=== PATIENT | male | born 1945 | race Caucasian/White ===

== ENCOUNTER 2019-08-16 09:27 | Outpatient (CLI) | payer MEDICARE, SELFPAY ==
--- NOTE | ~2019-08-16 | XR_ITS ---
XR lumbar spine 2-3V DATE: 08/16/2019 09:53 INDICATION: Low back pain. Skin anesthesia. TECHNIQUE: AP, lateral, coned lateral lumbosacral views COMPARISON: 07/06/2014 lumbar spine FINDINGS: There is rotatory dextroscoliosis. There is severe degenerative disc disease throughout the lumbar and lumbosacral spine, increased in s everity compared to 07/06/2014. No fracture or bone destruction is evident. There is no apparent spondylolisthesis. The sacroiliac joints are unremarkable other than some degenerative change. Surgical clips, right upper quadrant, consistent with cholecystectomy. IMPRESSION: Rotatory dextroscoliosis and severe degenerative disc disease throughout the lumbar and l umbosacral spine Reviewed, dictated and finalized at location A. IMPRESSION: Rotatory dextroscoliosis and severe degenerative disc disease throu ghout the lumbar and lumbosacral spine
--- NOTE | ~2019-08-16 | XR_ITS ---
XR hip RT 2V w AP pelvis DATE: 08/16/2019 09:53 INDICATION: Low back pain, right hip pain. TECHNIQUE: AP pelvis. AP and lateral views of right hip COMPARISON: None FINDINGS: No pelvic fracture or bone destruction. The pubic symphysis and sacroiliac joints are intac t. Hip joint spaces are symmetric and relatively preserved. No fracture, dislocation, avascular necrosis or bone destruction of the right hip. Dextro scoliosis and multilevel degenerative disc disease of the lumbar and lumbosacral spine. IMPRESSION: No significant abnormality of the right hip Reviewed, dictated and finalized at location A.
== END 2019-08-16 09:28 | disposition home or self-care (01) ==
PROVIDERS: PCP Internal Medicine; Visit Provider Internal Medicine
DX: M54.5 Low back pain (principal); R20.2 Paresthesia of skin
CPT/HCPCS: 72100; 73502

== ENCOUNTER 2019-08-26 13:28 | Outpatient (CLI) | payer MEDICARE, SELFPAY ==
--- NOTE | ~2019-08-26 | MR_ITS ---
EXAMINATION: MR thoracic spine wo/w con DATE: 08/26/2019 15:29 INDICATION: Thoracic pain. Right leg pain. TECHNIQUE: Magnetic resonance imaging (MRI) of the thoracic spine was performed without and with 20 m L MultiHance intravenous contrast. Sequences included sagittal and axial T2-weighted FSE, sagittal T2 -weighted FS FSE, and sagittal and axial T1-weighted FSE. Postcontrast sequences included sagittal an d axial T1-weighted FS FSE. COMPARISON: Chest 2 views 12/16/2018 FINDINGS: There is 6 degrees levocurvature of thoracic spine. There are Schmorl's nodes at multiple l evels in mid and lower thoracic spine. There is a hemangioma in T9 vertebral body. There is mildly de creased disc height at T5-T6, T6-T7, and T9-T10. At T2-T3, there is a right central protrusion with m ild central canal stenosis. At T6-T7, there is a central protrusion with mild central canal stenosis. There is multilevel facet joint osteoarthritis, severe on the right at T8-T9 and T10-T11. On the rig ht, there is mild neural foraminal stenosis at T2-T3, T9-T10, and T10-T11 and moderate neural foramin al stenosis at T8-T9. The spinal cord signal intensity is normal. IMPRESSION: 1. Mild thoracic spondylosis. Reviewed, dictated and finalized at location A.
--- NOTE | ~2019-08-26 | MR_ITS ---
EXAMINATION: MR lumbar spine wo con DATE: 08/26/2019 15:26 INDICATION: Right leg pain. TECHNIQUE: Magnetic resonance imaging (MRI) of the lumbar spine was performed without intravenous con trast. Sequences included sagittal T2-weighted FSE, sagittal STIR FSE, sagittal T1-weighted FSE, and axial T2-weighted FSE. COMPARISON: Lumbar spine MRI 02/27/2012 FINDINGS: There is 16 degrees dextroscoliosis of lumbar spine. There is 4 mm retrolisthesis of L2 on L3. There is mild chronic anterior wedging of T12 and L1 vertebral bodies. There are Schmorl's nodes at most levels. There is mildly decreased disc height at T12-L1 and moderately decreased disc height at L1-L2. There is severely decreased disc height at L2-L3 with interbody fusion. There is moderately decreased disc height at L3-L4 and L4-L5 and severely decreased disc height at L5-S1. The distal spi nal cord signal intensity is normal. The conus medullaris is at L1. There are cysts in the kidneys me asuring up to 3.3 cm on the right. The following disc levels are specifically discussed: T12-L1: The disc is bulging and has an annular fissure. There is mild bilateral facet joint osteoarth ritis. There is no neural foraminal stenosis. There is mild central canal stenosis. L1-L2: The disc is bulging and has an annular fissure. There is mild bilateral facet joint osteoarthr itis. There is mild bilateral neural foraminal stenosis. There is mild central canal stenosis. L2-L3: The disc is bulging. There is ankylosis of left facet joint. There is mild right and moderate left neural foraminal stenosis. There is mild central canal stenosis. L3-L4: The disc is bulging and has an annular fissure. There is severe bilateral facet joint osteoart hritis. There is moderate bilateral neural foraminal stenosis. There is mild central canal stenosis. L4-L5: The disc is bulging and has an annular fissure. There is severe bilateral facet joint osteoart hritis. There is moderate bilateral neural foraminal stenosis. There is mild central canal stenosis. L5-S1: The disc is bulging and has an annular fissure. There is severe right and moderate left facet joint osteoarthritis. There is moderate right and mild left neural foraminal stenosis. There is mild central canal stenosis. IMPRESSION: 1. Severe lumbar spondylosis with interval development of anterior and posterior fusion at L2-L3. 2. Lumbar dextroscoliosis. Reviewed, dictated and finalized at location A. IMPRESSION: 1. Severe lumbar spondylosis with interval development of anterior and posterio r fusion at L2-L3. 2. Lumbar dextroscoliosis.
[2019-08-26 14:09] LABS: Estimated Glomerular Filt Rate > 60
== END 2019-08-26 13:29 | disposition home or self-care (01) ==
PROVIDERS: PCP Internal Medicine; Visit Provider Nurse Practitioner Family
DX: M47.894 Other spondylosis, thoracic region (principal); M47.896 Other spondylosis, lumbar region
CPT/HCPCS: 36415; 72148; 72157; A9577

== ENCOUNTER 2019-12-14 12:35 | Outpatient (CLI) | payer MEDICARE, SELFPAY ==
--- NOTE | 2019-12-14 | ECHO_ITS ---
Patient Info Name: Dixon Wynne Age: 74 years : 1945 Gender: Male Ht: 71 in Wt: 231 lbs BSA: 2.32 m2 BP: 128 / 72 mmHg Exam Date: 12/14/2019 1:04 PM Exam Location: [facility] Patient Status: Outpatient Admit Date: 12/14/2019 Staff Ordering Physician: Jose Tanner MD Casino Attendant: Anitha Patel RDCS Attending Provider: Jose Tanner MD Referring Physician: Flores GONZALES; Exam Type: CA echo doppler color flow Study Info Indications I45.10 - Unspecified right bundle-branch block I10 - Essential (primary) hypertension Complete two-dimensional, color flow and Doppler transthoracic echocardiogram is performed. Summary 1. Complete two-dimensional, color flow and Doppler transthoracic echocardiogram is performed. 2. Left ventricular chamber dimension is normal. 3. Left ventricular systolic function is normal, estimated at 60-65%. 4. There is mildly increased left ventricular wall thickness. 5. The left ventricular diastolic function is abnormal. 6. E/e' 14 is mildly elevated. 7. There is mild aortic valve sclerosis. 8. There is trace mitral valve regurgitation. 9. There is trace tricuspid valve regurgitation. 10. No pulmonary hypertension, estimated pulmonary arterial systolic pressure is 23 mmHg. 11. There is trace pulmonic regurgitation. Left Ventricle E/e' 14 is mildly elevated. Left ventricular chamber dimension is normal. Left ventricular systolic function is normal, estimated at 60-65%. There is mildly increased left ventricular wall thickness. The left ventricular diastolic function is abnormal. Right Ventricle Right ventricular chamber dimension is normal. Right ventricular systolic function is normal. Left Atria Left atrial chamber dimension is normal. Right Atria Right atrial chamber dimension is normal. Aortic Valve The aortic valve is trileaflet. There is mild aortic valve sclerosis. There is no aortic valve stenosis. There is no aortic valve regurgitation. Pulmonic Valve There is trace pulmonic regurgitation. Mitral Valve There is no mitral valve stenosis. There is trace mitral valve regurgitation. Tricuspid Valve There is trace tricuspid valve regurgitation. No pulmonary hypertension, estimated pulmonary arterial systolic pressure is 23 mmHg. Pericardium/Pleural There is no pericardial effusion. Inferior Vena Cava Normal inferior vena cava with >50% collapse upon inspiration consistent with normal right atrial pressure, 5 mmHg. Aorta The aortic root size at the sinus of Valsalva is normal. Left Ventricular Outflow Tract Name Value Normal LVOT 2D LVOT Diameter 2.5 cm LVOT Doppler LVOT Peak Gradient 3 mmHg LVOT Mean Gradient 2 mmHg LVOT VTI 19 cm LVOT VTI/AV VTI Ratio 0.8 LVOT Stroke Volume 95 ml LVOT CO 4.7 l/min LVOT CI 2.0 l/min/m2 Mitral Valve
== END 2019-12-14 12:36 | disposition home or self-care (01) ==
PROVIDERS: PCP Internal Medicine; Visit Provider Internal Medicine
DX: I10 Essential (primary) hypertension (principal); I45.10 Unspecified right bundle-branch block; I35.8 Other nonrheumatic aortic valve disorders
CPT/HCPCS: 93306

== ENCOUNTER 2020-04-03 08:03 | Outpatient (CLI) | payer MEDICARE, SELFPAY ==
--- NOTE | ~2020-04-03 | CT_ITS ---
EXAMINATION: CT sinus wo con EXAM DATE: 04/03/2020 08:27 INDICATION: J32.9 - Chronic sinusitis, unspecified. TECHNIQUE: Spiral CT of the sinuses was acquired in the axial plane. Coronal and sagittal reformatte d images were also reviewed. The dose-length product (DLP) for this examination was 278.02 mGy-cm. Iterative reconstruction (ASIR) was used as dose reduction technique. Comparison is made to prior exa mination from 04/14/2015. FINDINGS: The sinuses are normally developed. There is minimal ethmoid mucoperiosteal thickening. No air-fluid levels. The ostiomeatal units are patent. There is no sinus wall thickening. There is mild to moderate leftward nasal septal deviation. The mastoid air cells and middle ears are well aerated. External auditory canals are patent. The orbits and visualized soft tissues are unremar kable. IMPRESSION: 1. Mild to moderate nasal septal leftward deviation. 2. Minimal ethmoid mucoperiosteal thickening. Reviewed, dictated and finalized at location A. 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
== END 2020-04-03 08:04 | disposition home or self-care (01) ==
PROVIDERS: PCP Internal Medicine; Visit Provider Internal Medicine
DX: J32.9 Chronic sinusitis, unspecified (principal); J34.2 Deviated nasal septum
CPT/HCPCS: 70486

== ENCOUNTER 2020-11-27 12:45 | Outpatient (CLI) | payer MEDICARE, SELFPAY ==
--- NOTE | ~2020-11-27 | MR_ITS ---
EXAMINATION: MR lumbar spine wo con EXAM DATE: 11/27/2020 13:41 INDICATION: Lumbar radiculopathy, right leg pain. Low back pain.. TECHNIQUE: Multi-sequential, multiplanar MR images of the lumbar spine were obtained without contrast . Sagittal T1, T2, T2 fat saturation images. Axial T2 weighted images. Comparison is made to prior examination from 08/26/2019. FINDINGS: There is mild to moderate upper lumbar dextroscoliosis. There is partially fused L2-3 disc space. Moderate to severe loss of the L5-S1 disc height, moderate loss at L1-2 and L3-4. Mild to mode rate lower thoracic disc disease. The conus medullaris terminates at the T12-L1 level and has normal signal intensity and morphology. Mild diffuse loss of vertebral body height. There are no focal logan ow signal abnormalities suspicious for malignancy or acute fracture. Paraspinal soft tissue is unrema rkable. Level by level evaluation: T12-L1: There is a mild diffuse disc bulge. Facet arthropathy: Mild. Neural foraminal stenosis: No stenosis. Central canal stenosis: No stenosis. L1-L2: There is a mild to moderate diffuse disc bulge. Facet arthropathy: Mild. Neural foraminal stenosis: Mild right. Central canal stenosis: Mild. L2-L3: Moderate posterior disc osteophyte complex Facet arthropathy: Mild to moderate. Neural foraminal stenosis: Mild bilateral. Central canal stenosis: Mild to moderate, some narrowing of the left lateral recess. L3-L4: There is a mild to moderate diffuse disc bulge. Facet arthropathy: Moderate. Neural foraminal stenosis: Moderate left, mild to moderate right. Central canal stenosis: Mild to moderate. L4-L5: There is a moderate diffuse disc bulge. Superimposed large right central protrusion/extrusion, inferior migration Facet arthropathy: Severe right, moderate to severe left. Neural foraminal stenosis: Moderate bilateral. Central canal stenosis: Moderate to severe. Severe right lateral recess stenosis. L5-S1: There is a moderate diffuse disc bulge. Facet arthropathy: Moderate. Neural foraminal stenosis: Moderate bilateral. Central canal stenosis: Mild. Compared to previous examination, the superimposed L4-5 right central protrusion/extrusion has develo ped causing the severe right lateral recess stenosis. IMPRESSION: 1. L4-5 disc bulge, large right central protrusion/extrusion with inferior migration causing severe lateral recess stenosis and moderate to severe central canal stenosis. 2. Mild to moderate lumbar dextroscoliosis. 3. Other chronic findings. Reviewed, dictated and finalized at location B. IMPRESSION: 1. L4-5 disc bulge, large right central protrusion/extrusion with inferior jose ration causing severe lateral recess stenosis and moderate to severe central ca nal stenosis. 2. Mild to moderate lumbar dextroscoliosis. 3. Other chronic findings.
== END 2020-11-27 12:46 | disposition home or self-care (01) ==
LOC: ANHIMG 12:46
PROVIDERS: PCP Internal Medicine; Visit Provider Nurse Practitioner Family
DX: M47.25 Other spondylosis with radiculopathy, thoracolumbar region (principal); M48.05 Spinal stenosis, thoracolumbar region; M47.27 Other spondylosis with radiculopathy, lumbosacral region; M48.07 Spinal stenosis, lumbosacral region
CPT/HCPCS: 72148

== ENCOUNTER 2021-02-05 10:55 | Outpatient (CLI) | payer MEDICARE, SELFPAY ==
--- NOTE | ~2021-02-05 | XR_ITS ---
XR lumbar spine min 4V 02/05/2021 11:35 Indication: Right low back pain radiating to the right leg. Procedure: 4 views lumbar spine Comparison: Comparison to multiple prior studies sequentially, with oldest reviewed study dated 07/06. Findings: There is dextroscoliosis centered at L3. There appears to be partial fusion of L2-3. There are prominent marginal osteophytes. There is advanced multilevel facet hypertrophy of the mid and low er lumbar spine. No acute fracture, subluxation or dislocation. Sacral foramen are symmetric. There a re surgical clips in the right mid abdomen. There is mild osteoarthritis of the hips. Impression: 1: Severe lumbar spondylosis with dextroscoliosis. No significant interval change. Reviewed, dictated and finalized at location A. 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 No significant interval marah zheng
== END 2021-02-05 10:56 | disposition home or self-care (01) ==
PROVIDERS: PCP Internal Medicine; Visit Provider Neurological Surgery
DX: M47.896 Other spondylosis, lumbar region (principal)
CPT/HCPCS: 72110

== ENCOUNTER 2021-05-04 09:26 | Outpatient (CLI) | payer MEDICARE, SELFPAY | END 2021-05-04 09:27 | disposition home or self-care (01) | LOC: ANHAUDIO 09:27 | PROVIDERS: PCP Internal Medicine; Visit Provider Internal Medicine | DX: H90.3 Sensorineural hearing loss, bilateral (principal) | CPT/HCPCS: 92557; 92567 ==

== ENCOUNTER 2021-07-03 15:42 | Inpatient (IN) | payer MEDICARE, OTHER, SELFPAY ==
[2021-07-03] VITALS (30 sets, daily range): BP systolic 129–161; BP diastolic 70–101; PULSE 87–114; RESP 18–34; TEMP 37.9–39.2; O2SAT 88–96
--- NOTE | ~2021-07-03 | CT_ITS ---
EXAMINATION: CT brain wo con DATE: 07/03/2021 20:10 INDICATION: confusion TECHNIQUE: Computed tomography (CT) of the head was performed without intravenous contrast. The mA wa s adjusted according to patient size. Iterative reconstruction technique was employed. The dose-lengt h product was 605.33 mGy-cm. COMPARISON: CT sinus 04/03/2020 FINDINGS: No acute intracranial hemorrhage or extra-axial fluid collection. No hydrocephalus, mass, or herniation. No acute ischemic infarct. Unremarkable dural venous sinus attenuation. No acute osseous abnormality. Mild ethmoid air cell mucosal thickening, otherwise the aerated spaces are clear. Mild chronic white matter change. Possible old bilateral lacunar infarcts. Bilateral lens replacement s. Hyperdense vessels as can be seen with hemoconcentration. IMPRESSION: No acute intracranial process. Reviewed, dictated and finalized at location K.
--- NOTE | ~2021-07-03 | XR_ITS ---
EXAMINATION: XR barium swallow modified DATE: 07/10/2021 11:19 INDICATION: Dysphagia. TECHNIQUE: The patient was given barium-containing material of multiple consistencies to swallow by t carolyn speech pathologist while I performed fluoroscopy. Dose-area product was 0.355 Gy-cm2. 0.5 minutes fluoroscopy time FINDINGS: Oral Stage: Within functional limits Pharyngeal Phase: Laryngeal penetration was noted with half teaspoon thin liquid. The examination wa s limited to several administrations of thin liquids. Cervical/Esophageal Stage: Within functional limits IMPRESSION: Modified esophagram findings as above. Please refer to the speech therapy report for spec ific recommendations. Reviewed, dictated and finalized at Location A. Reviewed, dictated and finalized at location A. IMPRESSION: Modified esophagram findings as above. Please refer to the speech t herapy report for specific recommendations.
--- NOTE | ~2021-07-03 | XR_ITS ---
EXAMINATION: XR barium swallow modified EXAM DATE: 07/05/2021 09:39 INDICATION: Dysphagia. TECHNIQUE: Modified barium esophagram was performed by speech pathologist with radiologist Dr. Yuri Vanessa present to administered fluoroscopy. Speech pathologist administered barium in varying consis tencies as per speech pathologist documentation. This was recorded on tape. There was total fluorosc opic time of 1.2 minutes. The DAP for this procedure was 0.9 Gycm2. A total of 2 images sent to PAC S from the exam. FINDINGS: Oral stage: Adequate function. Pharyngeal phase: Reduced laryngeal elevation.. Laryngeal penetration: Small amount. Aspiration: None. IMPRESSION: Patient tolerated oral feedings in the upright position. Please refer to speech patholo gist findings and specific feeding recommendations. Reviewed, dictated and finalized at location A. IMPRESSION: Patient tolerated oral feedings in the upright position. Please r efer to speech pathologist findings and specific feeding recommendations.
--- NOTE | ~2021-07-03 | CT_ITS ---
EXAMINATION: CT abdomen pelvis w con DATE: 07/03/2021 18:02 INDICATION: low back pain TECHNIQUE: Computed tomography (CT) of the abdomen and pelvis was performed with 100 mL Omnipaque-350 intravenous contrast. The dose-length product was 1459.20 mGy-cm. COMPARISON: 08/06/2010 FINDINGS: Lower thorax: Tree-in-bud, centrilobular groundglass, and basilar consolidative opacities. Fluid and debris within lower lung airways. Coronary artery calcification. Liver: Normal. Biliary/Gallbladder: Gallbladder is absent. No bile duct dilation. Spleen: Granulomatous calcifications Pancreas: No mass or duct dilation. Mild atrophy. Adrenals:No mass. Kidneys: Multiple right inferior pole cysts. Multiple bilateral hypodensities that are too small to c haracterize but also most likely represent cysts. Punctate bilateral nonobstructive calculi. No hydro nephrosis. GI tract: No small or large bowel dilation. Normal appendix. Diverticulosis without diverticulitis. Mesentery/Peritoneum: No ascites, mass, or free air. Retroperitoneum: No mass. Atherosclerotic calcifications in the abdominal vasculature. Small, 5 x 16 mm saccular outpouching off the right lateral aspect of the infrarenal abdominal aorta, for which fol low-up is not necessary. Pelvis: Mild prostatic hypertrophy and calcification. Bladder wall thickening, likely on the basis of outlet obstruction. Otherwise the pelvic are within normal limits. Bones/Soft Tissues: Right lower quadrant medication pump, catheter terminates in the thoracic spinal canal. Small uncomplicated fat-containing umbilical and left inguinal hernias. No acute osseous findi ng. Severe degenerative changes in the lumbar spine. Moderate bilateral hip osteoarthritis. Additional Findings: None. IMPRESSION: Right middle and lower lobe infection/aspiration. No acute abdominopelvic process. Chronic findings d etailed above. Reviewed, dictated and finalized at location K. IMPRESSION: Right middle and lower lobe infection/aspiration. No acute abdominopelvic proce ss. Chronic findings detailed above.
--- NOTE | ~2021-07-03 | CT_ITS ---
EXAMINATION: CTA chest PE protocol DATE: 07/03/2021 21:41 INDICATION: SOB TECHNIQUE: Computed tomography angiography (CTA) of the chest was performed with 100 mL Omnipaque-350 intravenous contrast timed to evaluate the pulmonary arteries. Coronal maximum intensity projection 3D-reconstructions were created by the technologist. The dose-length product (DLP) was 991.44 mGy-cm. Automated exposure control and iterative reconstruction technique were employed. COMPARISON: There is a lucent chest 01/04/2014. FINDINGS: Study quality: Degraded by significant respiratory motion such that segmental emboli could be missed. Pulmonary arteries: No central pulmonary emboli detected. More distal artery evaluation is severely l imited. Thoracic aorta: Mild ectasia and atherosclerotic calcification. Lung parenchyma and airways: Presumed infectious opacities in the right middle and lower lobes, and t o a lesser extent in the dependent portion of the left lower lobe. Airway fluid/debris is suspected b ut less well-seen due to motion. Thoracic inlet, axillae and chest wall: Unremarkable. Mediastinum: Enlarged mediastinum lymph nodes. Heart and pericardium: Normal. Coronary artery calcifications: Mild. Pleura: Unremarkable. Upper abdomen: No significant finding. Bones: No acute osseous finding. IMPRESSION: Exam limited by respiratory motion such that subsegmental emboli could be missed. No central emboli d etected. Findings suspicious for multifocal pneumonia, possibly on the basis of aspiration. Reviewed, dictated and finalized at location K. IMPRESSION: Exam limited by respiratory motion such that subsegmental emboli could be misse d. No central emboli detected. Findings suspicious for multifocal pneumonia, possibly on the basis of aspirati on.
--- NOTE | ~2021-07-03 | XR_ITS ---
EXAMINATION: XR chest 2V Exam Date/Time: 07/03/2021 16:09 CDT CLINICAL HISTORY: PATIENT DECLINING FOR 2 MONTHS, IN A.FIB, FORMER SMOKER Comparison: 12/16/2018. RESULT: Lines, tubes, and devices: Cholecystectomy clips. Lungs and pleura: Segmental opacities in the right lung base. Cardiomediastinal silhouette: Stable cardiomediastinal silhouette. Other: No acute osseous or upper abdominal finding. IMPRESSION: Atelectasis versus consolidation in the right lung base. Reviewed, dictated and finalized at location K.
--- NOTE | ~2021-07-03 | US_ITS ---
EXAMINATION: US venous doppler [facility] DATE: 07/10/2021 11:46 INDICATION: Lower limb edema. TECHNIQUE: Grayscale ultrasound images without and with compression and Doppler ultrasound images of the bilateral lower extremity veins were obtained. COMPARISON: Ultrasound 07/04/2021 FINDINGS: The visualized portions of right common femoral vein, profunda (deep) femoral vein, femoral vein, pop liteal vein, peroneal veins, posterior tibial veins, and greater saphenous vein outflow are patent. The visualized portions of left common femoral vein, profunda femoral vein, femoral vein, popliteal v ein, peroneal veins, posterior tibial veins, and greater saphenous vein outflow are patent. IMPRESSION: 1. No deep venous thrombosis. Reviewed, dictated and finalized at location A.
--- NOTE | ~2021-07-03 | US_ITS ---
EXAMINATION: US venous doppler [facility] EXAM DATE: 07/04/2021 10:16 INDICATION: Lower extremity edema TECHNIQUE: Multiple grayscale, color flow and Doppler images of the lower extremity deep venous syste ms bilaterally were obtained and reviewed. Comparison is made to prior examination from 06/05/2016. FINDINGS: Right side: The right common femoral, femoral and profunda veins demonstrate normal color flow, respi ratory variation, augmentation and compressibility. Compressibility, color flow confirmed within the right popliteal, posterior tibial, peroneal, and greater saphenous veins. Left side: The left common femoral, femoral and profunda veins demonstrate normal color flow, respira tory variation, augmentation and compressibility. Compressibility, color flow confirmed within the l eft popliteal, posterior tibial, peroneal, and greater saphenous veins. IMPRESSION: 1. No lower extremity deep venous thrombosis bilaterally. Reviewed, dictated and finalized at location A.
--- NOTE | 2021-07-03 15:53 | ECG_ITS ---
Measurements Intervals [place] Rate: 98 P: 40 GA: 173 QRS: 12 QRSD: 141 T: 23 QT: 382 QTc: 489 Interpretive Statements SINUS RHYTHM BASELINE ARTIFACT LOW-VOLTAGE QRS IN LIMB LEADS RIGHT BUNDLE-BRANCH BLOCK COMPARED TO ECG 12/16/2018 09:02:57 RIGHT BUNDLE-BRANCH BLOCK NOW PRESENT Electronically Signed On 07-03-2021 15:57:27 CDT by Samir Langley M.D.
--- NOTE | 2021-07-03 16:12 | PC.NURSE ---
PT went to xray.+
--- NOTE | 2021-07-03 16:48 | ED.WEAKNESS ---
HPI - Weakness General Chief complaint: Weakness Stated complaint: weakness Time Seen by Provider: 07/03/21 16:18 Source: patient and family History of Present Illness HPI Narrative: Patient presents with weakness. Patient was referred to the ER by his family. [facility] then family reports he has had progressive weakness. Patient continues to report back pain that radiates down to his legs. Family reports he has been sleeping most of the day cannot move his legs and want him to be evaluated in the ER. He has not noted any fevers still he complains of back pain that radiates down to his legs. He denies any nausea or vomiting or diarrhea denies any urinary symptoms. Related Data Home Medications Medication Instructions Recorded Confirmed omega-3 fatty acids 1,000 mg 3,000 mg PO DAILY cap 07/08/19 04/12/21 capsule aspirin 81 mg tablet,delayed 81 mg PO DAILY 09/23/19 04/12/21 release cholecalciferol (vitamin D3) 25 3,000 unit PO DAILY cap 12/23/19 04/12/21 mcg (1,000 unit) capsule psyllium husk 0.4 gram capsule 0.4 g PO DAILY 02/22/20 04/12/21 mecobalamin (vitamin B12) 1,000 1,000 mcg SUBLINGUAL DAILY 03/30/20 04/12/21 mcg disintegrating tablet,sublingual cyclobenzaprine 10 mg tablet 10 mg PO TID PRN 06/27/21 Allergies Allergy/AdvReac Type Severity Reaction Status Date / Time adhesive tape Allergy Intermediate Rash Verified 04/11/21 09:36 Review of Systems Review of Systems: CONSTITUTIONAL: Denies fever, chills, or sweats. EYES: Denies visual changes, redness, or discharge. ENT: Denies rhinorrhea, congestion, sore throat, or otalgia. CARDIOVASCULAR: Denies chest pain, palpitations, or edema. RESPIRATORY: Denies cough or dyspnea. GASTROINTESTINAL: Denies abdominal pain, nausea, vomiting, or diarrhea. GENITOURINARY: Denies dysuria or hematuria. SKIN: Denies rash or itching. MUSCULOSKELETAL: Denies joint pain, or myalgia. NEUROLOGIC: Denies headache, numbness, dizziness, or weakness. PSYCHIATRIC: Denies anxiety or depression. All systems reviewed & are unremarkable except as noted in HPI and below PMFSH Past Medical History Medical History (Updated 07/03/21 @ 20:31 by Brianna Gramajo DO) Benign essential hypertension Chronic low back pain Chronic sinusitis DM type 2 (diabetes mellitus, type 2) Elevated homocysteine Hepatitis Hyperhidrosis Hyperlipidemia Hypothyroidism Obesity BMI 31.9 Peripheral neuropathy RBBB (right bundle branch block) Ulcer Vitamin D deficiency Surgical History Surgical History (Updated 07/03/21 @ 20:31 by Brianna Gramajo DO) History of bilateral knee replacement History of cholecystectomy S/P lumbar laminectomy (04/2021) [facility] [place] Family History Family History Mother Family history of malignant neoplasm of stomach Family history of malignant neoplasm Patient's mother is Sibling Patient's sister is in good health Family history of malignant neoplasm Patient's brother is Father Family history of malignant neoplasm Patient's father is Other Cerebrovascular accident Diabetes mellitus Family history of allergic disorder Family history of cardiovascular disease Hypertension Social History Social History Smoking status: Former smoker Smoking end date: 03/17/02 Alcohol intake: current Additional living arrangements comments: brother Gender identity (if verbalized by the patient): Male Exam Narrative: GENERAL: Well-appearing, well-nourished, and in no acute distress. HEAD: Normocephalic, atraumatic. EYES: PERRLA and EOMI. ENT: Nares clear, no rhinorrhea or epistaxis. Mucous membranes moist. NECK: Supple. No masses. No JVD CHEST: Clear to auscultation. No respiratory d
[2021-07-03 17:04] LABS: Appearance Urine Clear (Clear); Bilirubin Urine 1+ (Negative); Blood Urine 2+ (Negative); Color Urine Yellow (Yellow); Glucose Urine UA Negative (Negative); Ketones Urine 1+ mg/dL (Negative); Leukocyte Esterase Ur Negative LEU/UL (Negative); Nitrate Urine Negative (Negative); Protein Urine 1+ mg/dL (Negative); Specific Grav Ur 1.025 (1.001-1.035); Urobilinogen Urine 0.2 mg/dL (<2.0); pH Urine 5.5 (5.0-9.0)
[2021-07-03 17:11] LABS: Mucus Urine Rare /lpf; WBC Urine 0-3 /hpf
[2021-07-03 17:12] LABS: Add Urine Microscopic? YES
[2021-07-03 17:40] LABS: Alanine Aminotransferase 35 U/L (4-50); Albumin Level 4.6 g/dL (3.5-5.1); Alkaline Phosphatase 91 U/L (38-126); Anion Gap 13 mmol/L (8-16); Aspartate Amino Transferase 83 U/L (17-59); Blood Urea Nitrogen 13 mg/dL (9-20); CRP 2.8 mg/dL (<1.0); Calcium 9.5 mg/dL (8.4-10.2); Carbon Dioxide 21 mmol/L (22-30); Chloride 102 mmol/L (98-107); Estimated CRCL calculation 98 ml/min; Estimated Glomerular Filt Rate > 60; Glucose 169 mg/dL (65-110); Potassium 3.7 mmol/L (3.4-5.0); Sodium 136 mmol/L (137-145)
[2021-07-03 18:57] LABS: Basophils Absolute Auto 0.1 K/mm3 (0.0-0.1); Basophils Percent Auto 0.4 % (0.2-1.2); Hematocrit 37.3 % (42.0-52.0); Hemoglobin 12.2 g/dL (14.0-18.0); Immature Granulocyte Absolute 0.15 K/mm3 (0.00-0.031); Immature Granulocyte Percent A 0.8 % (0-0.5); Immature Platelet Fraction Pct 3.1 % (0.9-11.2); Lymphocytes Absolute Auto 0.59 K/mm3 (0.9-3.2); Lymphocytes Percent Auto 3.1 % (18.3-44.2); Mean Corpuscular HGB Conc 32.7 g/dl (32-36); Mean Corpuscular Hemoglobin 31.1 pg (26-34); Mean Corpuscular Volume 95.2 fl (80-100); Mean Platelet Volume 9.6 fl (7.4-10.4); Monocytes Percent Auto 10.4 % (2.6-8.5); Neutrophils Absolute Auto 16.4 K/mm3 (1.3-6.7); Neutrophils Percent Auto 85.3 % (45.5-73.1); Platelet Count Result 265 k/mm3 (150-375); Red Blood Count 3.92 M/mm3 (4.6-6.20); Red Cell Distribution Width 13.5 % (11.5-14.5); White Blood Count 19.2 K/mm3 (4.5-10.0)
[2021-07-03 20:04] LABS: Erythrocyte Sedimentation Rate 21 mm/hr (0-20)
--- NOTE | 2021-07-03 20:19 | PM.IMHP ---
H&P: HPI History of Present Illness Date/Time: 07/03/21 20:19 Chief Complaint: Progressive weakness Narrative: 75-year-old male with past medical history of hyperlipidemia, hypertension, and chronic low back pain status post recent L4-L5 decompression at [facility] who presented to the ER via EMS due to progressive weakness. Patient had surgery 2 months ago and has been having declining functional status with progressive weakness. The patient's only complaint when he arrived to the ER was low back pain that radiates down to his legs. The family reported that the patient was unable to ambulate but the patient was able to lift his legs and had intact sensation on exam. The patient has been sleeping most the time ever since he had surgery. Per EMS report the patient was hallucinating that he was seeing bugs. At the time of my evaluation I found the patient somnolent/lethargic. The patient would open his eyes and state his name. He was able to tell the nurses is date of . Otherwise the patient was having mumbling speech. He was tachypneic, tachycardic and had accessory muscle use on respirations. Checked the patient's pulse ox well as at bedside patient satting 80% on room air. The patient had be increased to 4 L nasal cannula to maintain oxygen saturations of 92%. The patient was unable to provide any history and I was unable to contact the patient's family members for information. I went down to the ER to evaluate the patient and found the patient had acutely decompensated in his medical status. The patient was subsequently admitted to IMU. Shortly after arrival to the IMU the patient was noted have heart rates of 150s and 160s. I was notified in a stat EKG was performed. The patient was found to be in AFib RVR. EMS had reported that the patient was in AFib in the field but when the patient arrived to the ER he was in normal sinus rhythm. Patient was have previously undiagnosed paroxysmal atrial fibrillation. Review of Systems Review of Systems: Unobtainable due to the patient's mentation. [facility] Past Medical History Medical History (Updated 07/04/21 @ 01:12 by Brianna Gramajo DO) Benign essential hypertension Chronic low back pain Chronic sinusitis DM type 2 (diabetes mellitus, type 2) Elevated homocysteine Hepatitis Hyperhidrosis Hyperlipidemia Hypothyroidism Obesity BMI 31.9 Peripheral neuropathy RBBB (right bundle branch block) Ulcer Vitamin D deficiency Surgical History Surgical History (Updated 07/04/21 @ 01:07 by Brianna Gramajo DO) History of bilateral knee replacement Right knee replacement 04/2016 Left 11/2006 History of cholecystectomy S/P lumbar laminectomy (04/2021) [facility] [place] Family History Family History Mother Family history of malignant neoplasm of stomach Family history of malignant neoplasm Patient's mother is Sibling Patient's sister is in good health Family history of malignant neoplasm Patient's brother is Father Family history of malignant neoplasm Patient's father is Other Cerebrovascular accident Diabetes mellitus Family history of allergic disorder Family history of cardiovascular disease Hypertension Social History Social History (Updated 07/04/21 @ 01:08 by Brianna Gramajo DO) Social History: The patient smoked 1 pack of cigarettes per week but quit in 2002. He lives alone. Smoking status: Former smoker Smoking end date: 03/17/02 Alcohol intake: current Additional living arrangements comments: brother Gender identity (if verbalized by the patient): Male Meds Home Medications and Allergies Home Medications Medication Instructions Recorded Confirmed Type aspirin 81 mg tablet,delayed 81 mg PO DAILY 09/23/19 07/04/21 History release gabapentin 100 mg cap
--- NOTE | 2021-07-03 21:17 | PC.NURSE ---
MAXIMILIAN sent up at 2099. This RN called to give report at 2115 and the Nurse upstairs is in a patient room and unable to take call
[2021-07-03 22:52] LABS: Influenza A QL RT-PCR Negative (Negative); Influenza B QL RT-PCR Negative (Negative); SARS-CoV-2 RNA PCR Negative
[2021-07-03] MEDS: SODIUM CHLORIDE 0.9% IV 1,000 ML 999 ML IV CONT (23:21)
--- NOTE | 2021-07-03 23:47 | ADMGEN ---
This patient, Dixon Wynne, was admitted to IMU Room 204-01 at 2347. Patient/family oriented to hospital policies and general routines including ID bracelet, bed and alarms, visiting hours, pain management, procedures, bathroom and other care routines, personal items, smoking policy, room service/diet, and visiting hours. Information on how to activate the Rapid Response Team has been discussed. Patient/Family are encouraged to report perceived risks to care and to ask questions if they do not understand what they are told or what they should do.
[2021-07-04] VITALS (22 sets, daily range): BP systolic 96–124; BP diastolic 52–66; PULSE 75–144; RESP 18–24; TEMP 36.2–38.2; O2SAT 86–98; BMI 31.9
--- NOTE | 2021-07-04 | ECHO_ITS ---
Patient Info Name: Dixon Wynne Age: 75 years : 1945 Gender: Male Ht: 72 in Wt: 235 lbs BSA: 2.36 m2 HR: 75 bpm BP: 96 / 56 mmHg Heart Rhythm: Sinus Rhythm Technical Quality: Fair Exam Date: 07/04/2021 8:57 AM Exam Location: [facility] Pulmonary Patient Status: Outpatient Admit Date: 07/03/2021 Staff Ordering Physician: Brianna Gramajo DO Ore Puncher: Clover Montgomery RDCS Attending Provider: Brianna Gramajo DO Referring Physician: Avila HUGHES; Exam Type: CA echo dop color flow w con Study Info Indications - afib, rvr Complete two-dimensional, color flow and Doppler transthoracic echocardiogram is performed with contrast to opacify the left ventricle and to improve the deliniation of the left ventricle endocardial borders. Contrast/Agitated Saline Contrast/Ag. Saline: Definity Amount: 2.00 ml Administered By: Clover Montgomery RDCS Existing IV Access: Yes IV Access Condition: patent with no signs of infiltration Summary 1. Left ventricular chamber dimension is normal. 2. Definity contrast administered improved wall motion interpretation. 3. Left ventricular systolic function is normal, estimated at 60-65%. 4. There is mildly increased left ventricular wall thickness. 5. The left ventricular diastolic function is grade I diastolic dysfunction. 6. E/e' 9 is minimally elevated. 7. No pulmonary hypertension, estimated pulmonary arterial systolic pressure is 28 mmHg. Left Ventricle Definity contrast administered improved wall motion interpretation. E/e' 9 is minimally elevated. Left ventricular chamber dimension is normal. Left ventricular systolic function is normal, estimated at 60-65%. There is mildly increased left ventricular wall thickness. The left ventricular diastolic function is grade I diastolic dysfunction. Right Ventricle Right ventricular chamber dimension is normal. Right ventricular systolic function is normal. Left Atria Left atrial chamber dimension is normal. Right Atria Right atrial chamber dimension is normal. Aortic Valve The aortic valve is trileaflet. There is no aortic valve stenosis. There is no aortic valve regurgitation. Pulmonic Valve There is no pulmonic regurgitation. Mitral Valve There is no mitral valve stenosis. There is no mitral valve regurgitation. Tricuspid Valve There is no tricuspid valve regurgitation. No pulmonary hypertension, estimated pulmonary arterial systolic pressure is 28 mmHg. Pericardium/Pleural There is no pericardial effusion. Inferior Vena Cava Normal inferior vena cava with >50% collapse upon inspiration consistent with normal right atrial pressure, 5 mmHg. Aorta The aortic root size at the sinus of Valsalva is borderline dilated. Left Ventricular Outflow Tract Name Value Normal LVOT 2D LVOT Diameter 2.03 cm LVOT Doppler LVOT Peak Gradient 4 mmHg LVOT Mean Gradient 2 mmHg LVOT VTI 20.66 cm LVOT VTI/AV VTI Ratio 1.00
[2021-07-04] MEDS: SODIUM CHLORIDE 0.9% IV 1,000 ML 999 ML IV CONT (00:07)
--- NOTE | 2021-07-04 00:17 | ECG_ITS ---
Measurements Intervals [place] Rate: 144 P: VA: 0 QRS: -29 QRSD: 138 T: -39 QT: 274 QTc: 425 Interpretive Statements ATRIAL FLUTTER/TACHYCARDIA WITH RAPID VENTRICULAR RESPONSE RIGHT BUNDLE BRANCH BLOCK [120+ ms QRS DURATION, UPRIGHT V1, 40+ ms S IN I/aVL/V4/V5/V6] ST DEPRESSION, CONSIDER SUBENDOCARDIAL INJURY [0.1+ mV ST DEPRESSION] COMPARED TO ECG 07/03/2021 15:52:[address] ABNORMALITIES NOW PRESENT Electronically Signed On 07-04-2021 17:51:35 CDT by Samir Langley M.D.
[2021-07-04] MEDS: dilTIAZem 100 MG/100 ML 100 MG/100 ML BAG IV CONT (01:13)
[2021-07-04] MEDS: SODIUM CHLORIDE 0.9% IV 1,000 ML 100 ML IV CONT (01:18)
[2021-07-04 01:19] LABS: Base Excess ABG -0.3 mEq/l (+/-2.0); Carboxyhemoglobin 0.3 % THb (0-2.0); Fractional Inspired Oxygen 36 %; HCO3 ABG 22.2 mEq/l (22.0-26.0); Methemoglobin ABG 0.4 %THb (0-1.5); Oxygen Content ABG 14.9 %vol (16.0-22.0); Oxygen Saturation ABG 89.9 % (95.0-100.0); PCO2 ABG 29.9 mmHg (35.0-45.0); PO2 FiO2 Ratio Arterial Blood 1.44 %; Reduced Hemoglobin 11.9 %THb (0-5.0); Total Hemoglobin 12.1 g/dL (12.0-18.0); pH ABG 7.489 (7.350-7.450)
[2021-07-04 01:23] LABS: Device NASAL CANNULA; Modified Allen's Test Pass; Oxyhemoglobin 87.4 % THb (90.0-100.0); Site Drawn RIGHT RADIAL
[2021-07-04 01:32] LABS: Troponin I 0.046 ng/mL (0.000-0.034)
[2021-07-04] MEDS: ENOXAPARIN 120 MG/0.8 ML SYRINGE 106 MG SUB-Q (02:00)
[2021-07-04 02:12] LABS: Reflex Lactic Acid Yes or No Add Lactic
[2021-07-04] MEDS: AMPICILLIN SULB 3 GM/NS 100 ML 3 GM/100 ML VIAL IVPB ×4 (02:14→21:40)
--- NOTE | 2021-07-04 02:23 | ECG_ITS ---
Measurements Intervals [place] Rate: 83 P: 15 AR: 150 QRS: 23 QRSD: 146 T: 1 QT: 434 QTc: 510 Interpretive Statements SINUS RHYTHM RIGHT BUNDLE-BRANCH BLOCK NONSPECIFIC ST AND T-WAVE ABNORMALITY ABNORMAL ECG COMPARED TO ECG 07/04/2021 00:21:40 SINUS RHYTHM NOW PRESENT AND ST ABNORMALITIES HAVE IMPROVED Electronically Signed On 07-04-2021 17:53:40 CDT by Samir Langley M.D.
[2021-07-04 04:19] LABS: Lactic Acid 1.6 mmol/L (0.7-2.1)
[2021-07-04 04:21] LABS: Magnesium 1.5 mg/dL (1.6-2.3)
[2021-07-04 04:38] LABS: Troponin I 0.053 ng/mL (0.000-0.034)
[2021-07-04] MEDS: MAGNESIUM SULF 4 GM/WATER100ML 4 GM/100 ML BAG IVPB (05:21)
[2021-07-04] MEDS: LEVOTHYROXINE SODIUM INJ 100 MCG/5 ML VIAL 50 MCG IV PUSH (06:24)
[2021-07-04 07:16] LABS: Hematocrit 33.7 % (42.0-52.0); Hemoglobin 10.9 g/dL (14.0-18.0); Mean Corpuscular HGB Conc 32.3 g/dl (32-36); Mean Corpuscular Hemoglobin 31.5 pg (26-34); Mean Corpuscular Volume 97.4 fl (80-100); Platelet Count Result 183 k/mm3 (150-375); Red Blood Count 3.46 M/mm3 (4.6-6.20); Red Cell Distribution Width 13.6 % (11.5-14.5); White Blood Count 17.9 K/mm3 (4.5-10.0)
[2021-07-04 07:27] LABS: Alanine Aminotransferase 29 U/L (4-50); Albumin Level 3.2 g/dL (3.5-5.1); Alkaline Phosphatase 63 U/L (38-126); Anion Gap 8 mmol/L (8-16); Aspartate Amino Transferase 80 U/L (17-59); Bilirubin,Total 1.9 mg/dL (0.2-1.3); Blood Urea Nitrogen 10 mg/dL (9-20); Calcium 8.1 mg/dL (8.4-10.2); Carbon Dioxide 22 mmol/L (22-30); Chloride 101 mmol/L (98-107); Estimated CRCL calculation 112 ml/min; Estimated Glomerular Filt Rate > 60; Glucose 169 mg/dL (65-110); Sodium 131 mmol/L (137-145)
[2021-07-04 07:39] LABS: Atypical Lymphocytes Present; Band Neutrophils Percent 16 % (0-6); Eosinophils Absolute Manual 0.17 K/mm3 (0.02-0.5); Eosinophils Percent Manual 1 % (0-4); Lymphocytes Absolute Manual 1.25 K/mm3 (1.1-4.5); Monocytes Absolute Manual 0.17 K/mm3 (0.1-0.90); Monocytes Percent Manual 1 % (3-9); Neutrophils Absolute Manual 16.28 K/mm3 (1.3-6.7); Neutrophils Percent Manual 75 % (46-73); Platelet Estimate Adequate (Adequate); Total Cells Counted 100
[2021-07-04 07:58] LABS: Troponin I 0.049 ng/mL (0.000-0.034)
--- NOTE | 2021-07-04 09:10 | PCSTNOTE ---
Bedside swallow evaluation attempted, but deemed inappropriate on this date due to decreased levels of alertness.
[2021-07-04] MEDS: PERFLUTREN LIPID MICROSPHERES 1.5 ML VIAL DILUTED TO 10 ML TOTAL VOLUME IV PUSH (09:22)
--- NOTE | 2021-07-04 09:22 | IVDEFINITY ---
Prior to administration of IV Definity the patient was educated on the risks and benefits of the imaging enhancing agent including potential adverse side effects. The patient verbalized understanding. Allergies were verified. No exclusion criteria were identified and at least one of the following inclusion criteria were met: 1) physician request, 2) patient technically difficult to image (per the [place] [employer] guidelines of two or more segments not discernable within the apical view), or 3) questionable left ventricular function. ?
--- NOTE | 2021-07-04 16:40 | PCSTNOTE ---
Please refer to the Bedside Swallow Evaluation in the EMR. Please note, silent aspiration cannot be ruled out at bedside.
--- NOTE | 2021-07-04 16:43 | PM.IMPN ---
Progress Note: A&P Assessment and Plan (1) Severe sepsis with acute organ dysfunction: Code(s): A41.9 - Sepsis, unspecified organism; R65.20 - Severe sepsis without septic shock Status: Acute Assessment and Plan: 07/04/2021 interval history: patient with acute encephalopathy 2/2 sepsis as met criteria upon arrival and suspect patient has aspiration pneumonia patient is being treated with unasyn and vancomycin, will follow up on blood culture, patient is unable to provider any ROS or history, patient failed bedside swallow test and will have MDS tomorrow, patient with history of PAF upon arrival to floor went to A Fib RVR with rate of 150 most likely triggered by sepsis, was briefly placed diltiazem drip, and anticoagulated with levonox, rate is now controlled and off the drip, will consult fitting room operator for further recommendation to follow, patient s/p spinal surgery spoke with his family, patient has lost feeling in lower extremities and unable to ambulate,patient will need PT and if he is unable to ambulate then he will need placement, (2) Pneumonia: Qualifiers: Laterality: unspecified laterality Lung location: unspecified part of lung Pneumonia type: due to unspecified organism Qualified Code(s): J18.9 - Pneumonia, unspecified organism Code(s): J18.9 - Pneumonia, unspecified organism Status: Acute (3) Acute metabolic encephalopathy: Code(s): G93.41 - Metabolic encephalopathy Status: Acute (4) Acute respiratory failure with hypoxia: Code(s): J96.01 - Acute respiratory failure with hypoxia Status: Acute (5) Paroxysmal atrial fibrillation with RVR: Code(s): I48.0 - Paroxysmal atrial fibrillation Status: Acute Additional Plan The patient has severe sepsis likely due to aspiration pneumonia. I suspect the patient been staying in bed home after his back surgery and has not been moving about. His CT suggest aspiration pneumonia. Given the severe sepsis picture will change the patient from azithromycin to Rocephin and instead place the patient on Unasyn and vancomycin for better coverage of aspiration pneumonia. Blood cultures have been obtained and are pending. Will also check urine Legionella and pneumococcal antigen rule out other causes of pneumonia. The patient's COVID PCR and influenza PCR were negative. The patient has lactic acidosis. He received 1 L of IV fluids in the ER. Will give a 2 L bolus and will place patient on maintenance IV fluids. Sepsis criteria met with leukocytosis, fever, tachycardia, tachypnea, elevated transaminases and lactic acidosis. Will continue supplemental oxygen as needed it in titrate to who maintain goal O2 sats greater than 92%. Will check an ABG given rapid late deteriorating respiratory status. Patient had atrial fibrillation in the field and was normal sinus on arrival to the ER. He flipped back into atrial fibrillation on arrival to IMU. Patient has been started on a Cardizem drip. Will titrate to maintain heart rate less than 110. Patient does have bilateral lower extremity edema. Will check venous Doppler rule out DVT. Will also check echocardiogram in a.m. to evaluate cardiac structure and function. Will place patient on therapeutic Lovenox. Patient has acute metabolic encephalopathy due to underlying pneumonia. Will continue IV fluid hydration. The patient has history of diabetes. He is currently euglycemic. Will check Accu-Cheks q.6 hours while NPO and provide hypoglycemia protocol. 75 minutes spent in critical care activities. This case had a high probability of a clinically significant, sudden, or life threatening deterioration of this patient's condition which required my full and direct attention, intervention and personal management. Patient has been admitted as observation status. Subjective Date/time seen: 07/04/21 16:43 HPI-Narrative: 75-year-old male with past medical history of hyperlipidemia,
[2021-07-04 18:37] LABS: Glucose Point of Care 142 mg/dl (65-105)
[2021-07-04] MEDS: SODIUM CHLORIDE 0.9% IV 1,000 ML 70 ML IV CONT (18:43)
[2021-07-04] MEDS: ENOXAPARIN 120 MG/0.8 ML SYRINGE 105 MG SUB-Q (18:45)
--- NOTE | 2021-07-04 21:42 | PC.NURSE ---
1899 ampicillin started late due to delay of vancomycin dose from dayshift.
[2021-07-05] VITALS (15 sets, daily range): BP systolic 91–138; BP diastolic 55–93; PULSE 74–99; RESP 18–22; TEMP 36.2–37; O2SAT 94–100; BMI 31.9
[2021-07-05] MEDS: AMPICILLIN SULB 3 GM/NS 100 ML 3 GM/100 ML VIAL IVPB ×4 (01:42→18:25)
[2021-07-05] MEDS: ENOXAPARIN 120 MG/0.8 ML SYRINGE 105 MG SUB-Q ×2 (06:43→18:08)
[2021-07-05] MEDS: LEVOTHYROXINE SODIUM INJ 100 MCG/5 ML VIAL 50 MCG IV PUSH (06:44)
--- NOTE | 2021-07-05 09:24 | PC.NURSE ---
Patient downstairs for swallow study at 0920.
--- NOTE | 2021-07-05 10:00 | PCSTNOTE ---
Please refer to the Modified Barium Swallow Evaluation in the EMR.
--- NOTE | 2021-07-05 10:03 | PM.CNCAR ---
Assessment and Plan Assessment and plan (1) Paroxysmal atrial flutter: Code(s): I48.92 - Unspecified atrial flutter Status: Acute Assessment and Plan: Telemetry and EKG consistent with paroxysmal atrial flutter with rapid ventricular response with intervening sinus rhythm. Patient asymptomatic, presumably new diagnosis. CHADS2 Vasc score 6 (age, HTN, DM, CVA by CT head). Systemic anticoagulation advised as clinically appropriate, however, patient at high risk catastrophic bleeding complication due to frequent falls. As such for now, aspirin 81 mg daily with reasonable option. Discussed with the patient and explained elevated embolic stroke risk with paroxysmal atrial flutter yet patient at even higher risk for bleeding complication due to falls. He verbalized understanding of this risk. As BP permits low-dose beta-jonna therapy reasonable to reduce risk for recurrent episodes. Would avoid amiodarone unless sustained and/or symptomatic tachyarrhythmia and or hypotension. We also discussed management with medical therapy as he tolerates. -As patient does not appear at present to be a reasonable candidate for systemic anticoagulation as an outpatient, it is reasonable to adjust enoxaparin to DVT dosing and add daily aspirin. -telemetry (2) Elevated troponin: Code(s): R77.8 - Other specified abnormalities of plasma proteins Status: Acute Assessment and Plan: Mild elevation with flat curve in setting of sepsis, hypoxic respiratory failure and relative hypotension and paroxysmal atrial flutter with rapid ventricular response. This is consistent with type 2 infarction not secondary to acute coronary syndrome and/or plaque rupture. 2D echocardiogram EF 60-65% normal pulmonary pressures no wall motion abnormalities or significant valvular pathology. (3) Severe sepsis with acute organ dysfunction: Code(s): A41.9 - Sepsis, unspecified organism; R65.20 - Severe sepsis without septic shock Status: Acute Assessment and Plan: Per primary service. Continue IV antibiotics, cultures pending. (4) Acute respiratory failure with hypoxia: Code(s): J96.01 - Acute respiratory failure with hypoxia Status: Acute Assessment and Plan: O2 supplementation. Close observation, bronchodilator therapy is appropriate IV antibiotics. (5) Pneumonia: Qualifiers: Laterality: unspecified laterality Lung location: unspecified part of lung Pneumonia type: due to unspecified organism Qualified Code(s): J18.9 - Pneumonia, unspecified organism Code(s): J18.9 - Pneumonia, unspecified organism Status: Acute Assessment and Plan: As above, IV antibiotics. (6) DM type 2 (diabetes mellitus, type 2): Qualifiers: Diabetes mellitus jail insulin use: without parts counterman use Diabetes mellitus complication status: without complication Qualified Code(s): E11.9 - Type 2 diabetes mellitus without complications Code(s): E11.9 - Type 2 diabetes mellitus without complications Status: Acute Assessment and Plan: Per primary service. (7) Frequent falls: Code(s): R29.6 - Repeated falls Status: Acute Assessment and Plan: PT OT evaluation. History of Present Illness History of Present Illness Consult date/time: Date of service: 07/05/21 10:03 Cardiology consultation at the request of Dr. Brasher for opinion regarding atrial flutter with rapid ventricular response Requesting physician: Meseret Brasher MD Consult reason: Other (Atrial flutter with rapid ventricular response) Reason For Visit: Pneumonia, metabolic encephalopathy Narrative: Patient is a 75-year-old male with past medical history significant type 2 diabetes mellitus, hypertension, hyperlipidemia chronic back pain status post L4-L5 decompression [facility] with recurrent falls who presented the ER secondary to progressive weakness. Patient states ever since h
[2021-07-05] MEDS: SODIUM CHLORIDE 0.9% IV 1,000 ML 70 ML IV CONT (10:43)
[2021-07-05 12:03] LABS: Glucose Point of Care 126 mg/dl (65-105)
[2021-07-05 13:50] LABS: Vancomycin Trough 13.8 ug/mL (10.0-20.0)
[2021-07-05 16:25] LABS: Glucose Point of Care 156 mg/dl (65-105)
--- NOTE | 2021-07-05 17:56 | PC.NURSE ---
Report given to LES Smith with 3 med/surg. All questions answered and plan of care reviewed. Patient to go to med surg room 306.
--- NOTE | 2021-07-05 18:17 | PC.NURSE ---
This patient, Dixon Wynne, was received from [icu ] on 07/05/21 at 1815. Patient/family oriented to unit policies and routines
--- NOTE | 2021-07-05 19:15 | PM.IMPN ---
Progress Note: A&P Assessment and Plan (1) Severe sepsis with acute organ dysfunction: Code(s): A41.9 - Sepsis, unspecified organism; R65.20 - Severe sepsis without septic shock Status: Acute Assessment and Plan: 07/04/2021 interval history: patient with acute encephalopathy 2/2 sepsis as met criteria upon arrival and suspect patient has aspiration pneumonia patient is being treated with unasyn and vancomycin, will follow up on blood culture, patient is unable to provider any ROS or history, patient failed bedside swallow test and will have MDS tomorrow, patient with history of PAF upon arrival to floor went to A Fib RVR with rate of 150 most likely triggered by sepsis, was briefly placed diltiazem drip, and anticoagulated with levonox, rate is now controlled and off the drip, will consult production line technician for further recommendation to follow, patient s/p spinal surgery spoke with his family, patient has lost feeling in lower extremities and unable to ambulate,patient will need PT and if he is unable to ambulate then he will need placement, 07/05/2021 acute encephalopathy secondary to sepsis due to aspiration pneumonia. (2) Pneumonia: Qualifiers: Laterality: unspecified laterality Lung location: unspecified part of lung Pneumonia type: due to unspecified organism Qualified Code(s): J18.9 - Pneumonia, unspecified organism Code(s): J18.9 - Pneumonia, unspecified organism Status: Acute Assessment and Plan: Suspected aspiration pneumonia Modified barium swallow test today suggest penetration to thin liquids. On thickened liquid as suggested and recommended by speech therapist (3) Acute metabolic encephalopathy: Code(s): G93.41 - Metabolic encephalopathy Status: Acute Assessment and Plan: Likely due to sepsis and pneumonia (4) Acute respiratory failure with hypoxia: Code(s): J96.01 - Acute respiratory failure with hypoxia Status: Acute Assessment and Plan: Oxygen being tapered off (5) Paroxysmal atrial fibrillation with RVR: Code(s): I48.0 - Paroxysmal atrial fibrillation Status: Acute Assessment and Plan: Cardiology consulted Subjective Date/time seen: 07/05/21 19:15 Interval history: No Overnight events. Feeling better. Still has cough. Denies any chest pain or shortness of breath. He had back surgery in April. He has been home since then and has not work with therapy. He complains of some tingling and numbness in his upper extremities is been ongoing issue. Review of Systems Review of Systems: All systems reviewed & are unremarkable except as noted in HPI and below (HPI) Exam Narrative: Patient is comfortable, NAD HEENT: eyes are clear and none icteric LUNGS: normal respiratory efforts coarse breath sound bilaterally ABD: Soft nondistended nontender Lower extremities: no edema signs clubbing SKIN: nonjaundiced Neuro: grossly intact alert and conversant oriented to time place and person Objective Data Vital Signs Vital Signs: Vital Signs - 24 hr 07/04/21 19:31 07/04/21 20:00 07/04/21 22:00 Temperature 97.2 F L Pulse Rate 90 90 90 Respiratory Rate 24 H Blood Pressure 117/57 L Pulse Oximetry 96 96 07/04/21 23:34 07/05/21 00:00 07/05/21 02:25 Temperature 99.2 F Pulse Rate 94 93 89 Respiratory Rate 22 H Blood Pressure 109/52 L Pulse Oximetry 94 94 07/05/21 04:00 07/05/21 07:06 07/05/21 08:00 Temperature 97.8 F Pulse Rate 77 74 77 Respiratory Rate 18 Blood Pressure 91/55 L Pulse Oximetry 97 98 07/05/21 08:09 07/05/21 10:00 07/05/21 12:00 Temperature 97.1 F L Pulse Rate 81 89 88 Respiratory Rate 22 H Blood Pressure 96/55 L Pulse Oximetry 98 96 07/05/21 12:06 07/05/21 14:00 07/05/21 16:00 Temperature 98.5 F Pulse Rate 88 99 93 Respiratory Rate 20 Blood Pressure 120/65 Pulse Oximetry 99 07/05/21 16:08 07/05/21 18:29 Temperature 98.3 F
[2021-07-05] MEDS: ACETAMINOPHEN 325 MG TABLET 650 MG PO (22:53)
[2021-07-05 23:39] LABS: Glucose Point of Care 161 mg/dl (65-105)
[2021-07-06] VITALS (8 sets, daily range): BP systolic 117–125; BP diastolic 67–71; PULSE 71–95; RESP 18; TEMP 36.9–37.1; O2SAT 98–99
[2021-07-06] MEDS: AMPICILLIN SULB 3 GM/NS 100 ML 3 GM/100 ML VIAL IVPB ×3 (00:34→15:51)
[2021-07-06] MEDS: SALINE 0.65% NAS SOLN 44 ML BTL 1 SPRAY NASAL (03:05)
[2021-07-06] MEDS: SODIUM CHLORIDE 0.9% IV 1,000 ML 70 ML IV CONT (03:05)
[2021-07-06] MEDS: ENOXAPARIN 120 MG/0.8 ML SYRINGE 105 MG SUB-Q ×2 (06:01→15:53)
[2021-07-06] MEDS: LEVOTHYROXINE SODIUM INJ 100 MCG/5 ML VIAL 50 MCG IV PUSH (06:01)
[2021-07-06 06:14] LABS: Glucose Point of Care 159 mg/dl (65-105)
[2021-07-06 06:54] LABS: Basophils Absolute Auto 0.1 K/mm3 (0.0-0.1); Basophils Percent Auto 0.7 % (0.2-1.2); Eosinophils Absolute Auto 0.3 K/mm3 (0-0.3); Eosinophils Percent Auto 2.7 % (0-4.4); Hematocrit 29.1 % (42.0-52.0); Hemoglobin 9.7 g/dL (14.0-18.0); Immature Granulocyte Absolute 0.19 K/mm3 (0.00-0.031); Immature Granulocyte Percent A 1.7 % (0-0.5); Lymphocytes Absolute Auto 1.28 K/mm3 (0.9-3.2); Lymphocytes Percent Auto 11.5 % (18.3-44.2); Mean Corpuscular HGB Conc 33.3 g/dl (32-36); Mean Platelet Volume 10.1 fl (7.4-10.4); Monocytes Absolute Auto 0.8 K/mm3 (0.1-0.6); Monocytes Percent Auto 7.3 % (2.6-8.5); Neutrophils Absolute Auto 8.5 K/mm3 (1.3-6.7); Neutrophils Percent Auto 76.1 % (45.5-73.1); Platelet Count Result 271 k/mm3 (150-375); Red Blood Count 3.13 M/mm3 (4.6-6.20); Red Cell Distribution Width 13.6 % (11.5-14.5); White Blood Count 11.2 K/mm3 (4.5-10.0)
[2021-07-06 07:00] LABS: Alanine Aminotransferase 29 U/L (4-50); Albumin Level 2.6 g/dL (3.5-5.1); Alkaline Phosphatase 66 U/L (38-126); Anion Gap 4 mmol/L (8-16); Aspartate Amino Transferase 59 U/L (17-59); Bilirubin,Total 0.4 mg/dL (0.2-1.3); Blood Urea Nitrogen 8 mg/dL (9-20); Calcium 7.5 mg/dL (8.4-10.2); Carbon Dioxide 26 mmol/L (22-30); Chloride 101 mmol/L (98-107); Estimated CRCL calculation 113 ml/min; Estimated Glomerular Filt Rate > 60; Glucose 165 mg/dL (65-110); Magnesium 1.8 mg/dL (1.6-2.3); Potassium 2.9 mmol/L (3.4-5.0); Sodium 131 mmol/L (137-145)
[2021-07-06 07:44] LABS: Glucose Point of Care 152 mg/dl (65-105)
[2021-07-06 11:21] LABS: Glucose Point of Care 167 mg/dl (65-105)
[2021-07-06] MEDS: POTASSIUM CHLORIDE 20 MEQ TABLET 40 MEQ PO (11:31)
--- NOTE | 2021-07-06 11:56 | PM.IMPN ---
Progress Note: A&P Assessment and Plan (1) Severe sepsis with acute organ dysfunction: Code(s): A41.9 - Sepsis, unspecified organism; R65.20 - Severe sepsis without septic shock Status: Acute Assessment and Plan: 07/04/2021 interval history: patient with acute encephalopathy 2/2 sepsis as met criteria upon arrival and suspect patient has aspiration pneumonia patient is being treated with unasyn and vancomycin, will follow up on blood culture, patient is unable to provider any ROS or history, patient failed bedside swallow test and will have MDS tomorrow, patient with history of PAF upon arrival to floor went to A Fib RVR with rate of 150 most likely triggered by sepsis, was briefly placed diltiazem drip, and anticoagulated with levonox, rate is now controlled and off the drip, will consult server programmer for further recommendation to follow, patient s/p spinal surgery spoke with his family, patient has lost feeling in lower extremities and unable to ambulate,patient will need PT and if he is unable to ambulate then he will need placement, 07/05/2021 acute encephalopathy secondary to sepsis due to aspiration pneumonia. 07/06/2021 acute encephalopathy continues to improve. Sepsis is resolved. Will stop IV fluid today on oral diet (2) Pneumonia: Qualifiers: Laterality: unspecified laterality Lung location: unspecified part of lung Pneumonia type: due to unspecified organism Qualified Code(s): J18.9 - Pneumonia, unspecified organism Code(s): J18.9 - Pneumonia, unspecified organism Status: Acute Assessment and Plan: Suspected aspiration pneumonia Modified barium swallow test today suggest penetration to thin liquids. On thickened liquid as suggested and recommended by speech therapist Unasyn for antibiotic along with vancomycin Will stop his vancomycin today (3) Acute metabolic encephalopathy: Code(s): G93.41 - Metabolic encephalopathy Status: Acute Assessment and Plan: Likely due to sepsis and pneumonia (4) Acute respiratory failure with hypoxia: Code(s): J96.01 - Acute respiratory failure with hypoxia Status: Acute Assessment and Plan: Oxygen being tapered off (5) Paroxysmal atrial fibrillation with RVR: Code(s): I48.0 - Paroxysmal atrial fibrillation Status: Acute Assessment and Plan: Cardiology consulted Back to sinus rhythm Subjective Date/time seen: 07/06/21 11:56 Interval history: No Overnight events. Feeling better. Still has cough. Denies any chest pain or shortness of breath. He had back surgery in April. He has been home since then and has not work with therapy. He complains of some tingling and numbness in his upper extremities is been ongoing issue. 07/06/2021 no overnight events. Feeling stronger sitting in the chair. Denies any chest pain or shortness of breath. Remains on oxygen. Has a Boles catheter in place. Review of Systems Review of Systems: All systems reviewed & are unremarkable except as noted in HPI and below (HPI) Exam Narrative: Patient is comfortable, NAD HEENT: eyes are clear and none icteric LUNGS: normal respiratory efforts coarse breath sound bilaterally ABD: Soft nondistended nontender Lower extremities: no edema signs clubbing SKIN: nonjaundiced Neuro: grossly intact alert and conversant oriented to time place and person Objective Data Vital Signs Vital Signs: Vital Signs - 24 hr 07/05/21 12:00 07/05/21 12:06 07/05/21 14:00 Temperature 98.5 F Pulse Rate 88 88 99 Respiratory Rate 20 Blood Pressure 120/65 Pulse Oximetry 96 99 07/05/21 16:00 07/05/21 16:08 07/05/21 18:29 Temperature 98.3 F 98.6 F Pulse Rate 93 95 97 Respiratory Rate 20 20 Blood Pressure 126/62 138/93 H Pulse Oximetry 98 100 07/05/21 20:00 07/05/21 21:50 07/06/21 00:00 Temperature 98.1 F Pulse Rate 88 91 88 Respiratory Rate 20 Blood Pressure 135/73 Pulse Oximetry 1
--- NOTE | 2021-07-06 15:54 | PM.PNCARD ---
Progress Note: A&P Assessment and Plan (1) Paroxysmal atrial flutter: Code(s): I48.92 - Unspecified atrial flutter Status: Acute Assessment and Plan: No recurrent atrial flutter on telemetry. Remote history of paroxysmal atrial fibrillation 2017. CHADS2 Vasc score 6 (age, HTN, DM, CVA by CT head). Systemic anticoagulation advised as clinically appropriate, however, patient at high risk catastrophic bleeding complication due to frequent falls. As such for now, aspirin 81 mg daily with reasonable option. - BP has improved and he may now be able to tolerate beta-jonna therapy. Will hold for right now, but if he has recurrence would initiate Metoprolol 25mg BID. -As patient does not appear at present to be a reasonable candidate for systemic anticoagulation as an outpatient, it is reasonable to adjust enoxaparin to DVT dosing and add daily aspirin. (2) Elevated troponin: Code(s): R77.8 - Other specified abnormalities of plasma proteins Status: Acute Assessment and Plan: Mild elevation with flat curve in setting of sepsis, hypoxic respiratory failure and relative hypotension and paroxysmal atrial flutter with rapid ventricular response. This is consistent with type 2 infarction not secondary to acute coronary syndrome and/or plaque rupture. 2D echocardiogram EF 60-65% normal pulmonary pressures no wall motion abnormalities or significant valvular pathology. (3) Severe sepsis with acute organ dysfunction: Code(s): A41.9 - Sepsis, unspecified organism; R65.20 - Severe sepsis without septic shock Status: Acute Assessment and Plan: Per primary service. Continue IV antibiotics. Blood cultures 07/03/2021 x2 negative to date. (4) Acute respiratory failure with hypoxia: Code(s): J96.01 - Acute respiratory failure with hypoxia Status: Acute Assessment and Plan: O2 supplementation. Close observation, bronchodilator therapy is appropriate IV antibiotics. (5) Pneumonia: Qualifiers: Laterality: unspecified laterality Lung location: unspecified part of lung Pneumonia type: due to unspecified organism Qualified Code(s): J18.9 - Pneumonia, unspecified organism Code(s): J18.9 - Pneumonia, unspecified organism Status: Acute Assessment and Plan: As above, IV antibiotics. Chest pain appears noncardiac worse with deep breathing consistent with pleuritic pain. Continue to monitor. Patient will notify us with progression or new issues. (6) DM type 2 (diabetes mellitus, type 2): Qualifiers: Diabetes mellitus bed bug exterminator insulin use: without retirement use Diabetes mellitus complication status: without complication Qualified Code(s): E11.9 - Type 2 diabetes mellitus without complications Code(s): E11.9 - Type 2 diabetes mellitus without complications Status: Acute Assessment and Plan: Per primary service. (7) Frequent falls: Code(s): R29.6 - Repeated falls Status: Acute Assessment and Plan: PT OT evaluation. Subjective Date/time seen: Date of service:07/06/21 15:54 Follow-up for paroxysmal atrial flutter with RVR no recurrent atrial flutter on telemetry. Denies palpitations, feels a little better overall. Occasional cough, notes some discomfort in his chest when he takes a deep breath only. Complains of back pain worse when he raises his left leg. Still feels weak. Review of Systems Review of Systems: All systems reviewed & are unremarkable except as noted in HPI and below Constitutional: Constitutional: Reports as per HPI, Reports no additional constitutional complaints, Reports body ache(s), Reports chills, Reports fatigue, Reports fever(s), Reports frequent falls and Reports weakness Eyes: Eyes: Reports as per HPI and Reports no additional eye complaints ENT: Reports system reviewed and no additional complaints, except as documented, Reports as per HPI and Denies dizziness Car
[2021-07-06 16:13] LABS: Glucose Point of Care 149 mg/dl (65-105)
[2021-07-07] VITALS (8 sets, daily range): BP systolic 121–131; BP diastolic 66–76; PULSE 73–95; RESP 16–20; TEMP 36.9–37.1; O2SAT 94–97
[2021-07-07] MEDS: AMPICILLIN SULB 3 GM/NS 100 ML 3 GM/100 ML VIAL IVPB ×4 (02:04→20:15)
[2021-07-07] MEDS: LEVOTHYROXINE SODIUM INJ 100 MCG/5 ML VIAL 50 MCG IV PUSH (05:51)
[2021-07-07] MEDS: ENOXAPARIN 120 MG/0.8 ML SYRINGE 105 MG SUB-Q ×2 (05:52→17:32)
--- NOTE | 2021-07-07 10:02 | PM.PNCARD ---
Progress Note: A&P Additional Plan 75-year-old man with: Generalized weakness apparent fall at home was hospitalized here after recent back surgery elsewhere. I we are seeing the patient because of an episode of atrial flutter with 2-1 conduction that apparently was self-limited and is back in sinus rhythm. Currently no antiarrhythmic medication is being prescribed. Telemetry demonstrates that he is maintaining normal sinus rhythm. Will continue to follow with you while he is in the hospital no additional cardiac recommendations at this time Rachid Alaniz MD [facility] Subjective Date/time seen: Date of service 07/07/21 10:02 Interval history: Follow-up visit in this 75-year-old man with: Episode of atrial flutter with 2-1 conduction currently in sinus rhythm and not on any antiarrhythmic medication at this time. Telemetry demonstrates maintaining normal sinus rhythm. No cardiovascular complaints today he wants me to turn the temperature up in his room he says it is too cold in there. Denies prior cardiac history of any kind. Exam Narrative: General: Elderly male sitting upright in chair, awake, alert answering questions appropriately although with slight delay in response, otherwise, no apparent distress, comfortable, pleasant, and cooperative. Head: atraumatic, normocephalic Eyes: EOM intact, sclerae anicteric, conjunctivae unremarkable Ears/Nose: external inspection of ears and nose were grossly normal Mouth/Throat: oral mucosa pink and moist Neck: supple, normal range of motion, no jugular venous distention or carotid bruits, thyroid nonpalpable, trachea midline. Cardiac: Distant heart sounds, Regular rate and rhythm, normal S1-S2, soft early systolic murmur Lungs: Diminished breath sounds, rhonchi, Abdomen: Soft, nontender, nondistended, positive bowel sounds throughout. Abdominal hernia, No appreciable hepatosplenomegaly, no rebound guarding or rigidity noted. Abdominal aorta nonpalpable, no appreciable bruits. Extremities: 1+ bilateral lower extremity edema, no clubbing, and or cyanosis. Extremities warm and well perfused. Skin: Warm and dry without ecchymoses, rashes, and/or petechiae. Musculoskeletal: Muscle strength and tone intact throughout without obvious deformities. Vascular: Carotid upstrokes 2+ bilaterally, radial pulses 2+ bilaterally, dorsalis pedis pulses 2+ bilaterally, posterior tibialis pulses palpable bilaterally. Neurologic: Cranial nerves 2-12 grossly intact, examination grossly nonfocal Pscyhiatric: Mood calm and appropriate. Objective Data Vital Signs Vital Signs: Vital Signs - 24 hr 07/06/21 11:30 07/06/21 12:00 07/06/21 16:00 Temperature 36.9 C Pulse Rate 95 86 Respiratory Rate 18 Blood Pressure 125/71 Pulse Oximetry 99 99 07/06/21 20:00 07/07/21 00:00 07/07/21 04:00 Temperature 37.1 C Pulse Rate 91 76 77 Respiratory Rate 16 Blood Pressure 121/76 Pulse Oximetry 96 Intake/Output Intake/Output: Intake & Output 07/04/21 07/05/21 07/06/21 07/07/21 23:59 23:59 23:59 23:59 Intake Total 4517 3120 6550 1190 Output Total 750 1100 1150 2400 Balance 3767 2020 5400 -1210 Meds/Results Medications: Active Medications Generic Name Dose Route Start Last Admin Trade Name Freq PRN Reason Stop Dose Admin Acetaminophen 650 mg 07/05/21 22:23 07/05/21 22:53 Acetaminophen 325 Mg Tablet PO 650 mg Q6H PRN Administration Mild Pain (1-3) or Fever Dextrose 12.5 gm 07/04/21 01:18 Dextrose 50% 25 Gm/50 Ml Syringe IV PUSH PRN PRN Hypoglycemia Protocol Enoxaparin Sodium 105 mg 07/04/21 18:00 07/07/21 05:52 Enoxaparin 120 Mg/0.8 Ml Syringe SUB-Q 105 mg Q12H REESE Administration Glucagon 1 mg 07/04/21 01:18 Glucagon For Inj 1 Mg Vial IM PRN PRN Hypoglycemia Protocol Glucose 15 gm 07/04/21 01:18 Glucose Oral Gel 15 Gm Of Glucse In 37.5 Gm Tu
[2021-07-07 12:15] LABS: Glucose Point of Care 192 mg/dl (65-105)
--- NOTE | 2021-07-07 13:45 | PM.IMPN ---
Progress Note: A&P Assessment and Plan (1) Severe sepsis with acute organ dysfunction: Code(s): A41.9 - Sepsis, unspecified organism; R65.20 - Severe sepsis without septic shock Status: Acute Assessment and Plan: 07/04/2021 interval history: patient with acute encephalopathy 2/2 sepsis as met criteria upon arrival and suspect patient has aspiration pneumonia patient is being treated with unasyn and vancomycin, will follow up on blood culture, patient is unable to provider any ROS or history, patient failed bedside swallow test and will have MDS tomorrow, patient with history of PAF upon arrival to floor went to A Fib RVR with rate of 150 most likely triggered by sepsis, was briefly placed diltiazem drip, and anticoagulated with levonox, rate is now controlled and off the drip, will consult bone grinder for further recommendation to follow, patient s/p spinal surgery spoke with his family, patient has lost feeling in lower extremities and unable to ambulate,patient will need PT and if he is unable to ambulate then he will need placement, 07/05/2021 acute encephalopathy secondary to sepsis due to aspiration pneumonia. 07/06/2021 acute encephalopathy continues to improve. Sepsis is resolved. Will stop IV fluid today on oral diet 07/07/2021 sepsis resolved encephalopathy improving. Continue IV antibiotics as ordered await CBC count today. May switch to Augmentin oral if continues to improve (2) Pneumonia: Qualifiers: Laterality: unspecified laterality Lung location: unspecified part of lung Pneumonia type: due to unspecified organism Qualified Code(s): J18.9 - Pneumonia, unspecified organism Code(s): J18.9 - Pneumonia, unspecified organism Status: Acute Assessment and Plan: Suspected aspiration pneumonia Modified barium swallow test today suggest penetration to thin liquids. On thickened liquid as suggested and recommended by speech therapist Unasyn for antibiotic along with vancomycin Stopped his vancomycin 07/06/2021 (3) Acute metabolic encephalopathy: Code(s): G93.41 - Metabolic encephalopathy Status: Acute Assessment and Plan: Likely due to sepsis and pneumonia (4) Acute respiratory failure with hypoxia: Code(s): J96.01 - Acute respiratory failure with hypoxia Status: Acute Assessment and Plan: Oxygen being tapered off (5) Paroxysmal atrial fibrillation with RVR: Code(s): I48.0 - Paroxysmal atrial fibrillation Status: Acute Assessment and Plan: Cardiology consulted Back to sinus rhythm Subjective Date/time seen: 07/07/21 13:45 Interval history: Interval history: No Overnight events. Feeling better. Still has cough. Denies any chest pain or shortness of breath. He had back surgery in April. He has been home since then and has not work with therapy. He complains of some tingling and numbness in his upper extremities is been ongoing issue. 07/06/2021 no overnight events. Feeling stronger sitting in the chair. Denies any chest pain or shortness of breath. Remains on oxygen. Has a Boles catheter in place. 07/07/2021 no overnight events. Has some sniffles going on today. Any shortness of breath or chest pain. Minimal cough. Off oxygen now. Boles catheter has been removed. He has been accepted to rehab facility in [place] Review of Systems Review of Systems: All systems reviewed & are unremarkable except as noted in HPI and below (HPI) Exam Narrative: Patient is comfortable, NAD HEENT: eyes are clear and none icteric LUNGS: normal respiratory efforts coarse breath sound bilaterally ABD: Soft nondistended nontender Lower extremities: no edema signs clubbing SKIN: nonjaundiced Neuro: grossly intact alert and conversant oriented to time place and person Objective Data Vital Signs Vital Signs: Vital Signs - 24 hr 07/06/21 16:00 07/06/21 20:00 07/07/21 00:00 Temperature 98.4 F 98.7 F Pulse R
[2021-07-07] MEDS: LORATADINE 10 MG TABLET PO (17:32)
[2021-07-07 18:20] LABS: Glucose Point of Care 183 mg/dl (65-105)
[2021-07-07] MEDS: SALINE 0.65% NAS SOLN 44 ML BTL 1 SPRAY NASAL (21:14)
[2021-07-08] MEDS: AMPICILLIN SULB 3 GM/NS 100 ML 3 GM/100 ML VIAL IVPB ×4 (01:26→18:15)
[2021-07-08] MEDS: LEVOTHYROXINE SODIUM INJ 100 MCG/5 ML VIAL 50 MCG IV PUSH (05:34)
[2021-07-08] MEDS: ENOXAPARIN 120 MG/0.8 ML SYRINGE 105 MG SUB-Q (05:36)
[2021-07-08 05:53] VITALS: BP 130/75; PULSE 82; RESP 16; TEMP 36.7; O2SAT 94
[2021-07-08 06:07] LABS: Hematocrit 30.1 % (42.0-52.0); Hemoglobin 10.1 g/dL (14.0-18.0); Mean Corpuscular HGB Conc 33.6 g/dl (32-36); Mean Corpuscular Hemoglobin 30.6 pg (26-34); Mean Corpuscular Volume 91.2 fl (80-100); Mean Platelet Volume 10.4 fl (7.4-10.4); Platelet Count Result 276 k/mm3 (150-375); Red Cell Distribution Width 13.5 % (11.5-14.5); White Blood Count 12.1 K/mm3 (4.5-10.0)
[2021-07-08 06:18] LABS: Alanine Aminotransferase 35 U/L (4-50); Albumin Level 2.9 g/dL (3.5-5.1); Alkaline Phosphatase 89 U/L (38-126); Anion Gap 7 mmol/L (8-16); Aspartate Amino Transferase 42 U/L (17-59); Bilirubin,Total 0.5 mg/dL (0.2-1.3); Blood Urea Nitrogen 5 mg/dL (9-20); Calcium 7.9 mg/dL (8.4-10.2); Carbon Dioxide 25 mmol/L (22-30); Chloride 99 mmol/L (98-107); Estimated CRCL calculation 132 ml/min; Estimated Glomerular Filt Rate > 60; Glucose 144 mg/dL (65-110); Magnesium 1.7 mg/dL (1.6-2.3); Potassium 3.3 mmol/L (3.4-5.0); Sodium 131 mmol/L (137-145)
[2021-07-08 07:20] LABS: Band Neutrophils Percent 3 % (0-6); Basophils Absolute Manual 0.12 K/mm3 (0.0-0.1); Basophils Percent Manual 1 % (0-1); Eosinophils Absolute Manual 0.36 K/mm3 (0.02-0.5); Eosinophils Percent Manual 3 % (0-4); Metamyelocytes Percent 1 %; Monocytes Absolute Manual 1.08 K/mm3 (0.1-0.90); Monocytes Percent Manual 9 % (3-9); Neutrophils Percent Manual 78 % (46-73); Platelet Estimate Adequate (Adequate); Total Cells Counted 100
[2021-07-08 07:21] LABS: Anisocytosis 1+ (NORMAL); Atypical Lymphocytes Present; Hypochromasia 1+ (NORMAL); Ovalocytes 1+ (NORMAL)
[2021-07-08 08:00] VITALS: PULSE 82; RESP 16; O2SAT 94
[2021-07-08] MEDS: LORATADINE 10 MG TABLET PO (08:20)
[2021-07-08] MEDS: POTASSIUM CHLORIDE 20 MEQ TABLET 40 MEQ PO (11:06)
[2021-07-08 14:00] VITALS: BP 133/80; PULSE 86; RESP 20; TEMP 36.1; O2SAT 96
--- NOTE | 2021-07-08 14:24 | PM.IMPN ---
Progress Note: A&P Assessment and Plan (1) Severe sepsis with acute organ dysfunction: Code(s): A41.9 - Sepsis, unspecified organism; R65.20 - Severe sepsis without septic shock Status: Acute Assessment and Plan: 07/04/2021 interval history: patient with acute encephalopathy 2/2 sepsis as met criteria upon arrival and suspect patient has aspiration pneumonia patient is being treated with unasyn and vancomycin, will follow up on blood culture, patient is unable to provider any ROS or history, patient failed bedside swallow test and will have MDS tomorrow, patient with history of PAF upon arrival to floor went to A Fib RVR with rate of 150 most likely triggered by sepsis, was briefly placed diltiazem drip, and anticoagulated with levonox, rate is now controlled and off the drip, will consult carroting machine operator for further recommendation to follow, patient s/p spinal surgery spoke with his family, patient has lost feeling in lower extremities and unable to ambulate,patient will need PT and if he is unable to ambulate then he will need placement, 07/05/2021 acute encephalopathy secondary to sepsis due to aspiration pneumonia. 07/06/2021 acute encephalopathy continues to improve. Sepsis is resolved. Will stop IV fluid today on oral diet 07/07/2021 sepsis resolved encephalopathy improving. Continue IV antibiotics. May switch to Augmentin oral if continues to improve 07/08/2021 sepsis resolved encephalopathy improving CBC with leukocytosis persistent 12 K today was 11 K liver yesterday. Will continue Unasyn for now and recheck CBC in the morning. (2) Pneumonia: Qualifiers: Laterality: unspecified laterality Lung location: unspecified part of lung Pneumonia type: due to unspecified organism Qualified Code(s): J18.9 - Pneumonia, unspecified organism Code(s): J18.9 - Pneumonia, unspecified organism Status: Acute Assessment and Plan: Suspected aspiration pneumonia Modified barium swallow test today suggest penetration to thin liquids. On thickened liquid as suggested and recommended by speech therapist Unasyn for antibiotic along with vancomycin Stopped his vancomycin 07/06/2021 (3) Acute metabolic encephalopathy: Code(s): G93.41 - Metabolic encephalopathy Status: Acute Assessment and Plan: Likely due to sepsis and pneumonia (4) Acute respiratory failure with hypoxia: Code(s): J96.01 - Acute respiratory failure with hypoxia Status: Acute Assessment and Plan: Oxygen being tapered off (5) Paroxysmal atrial fibrillation with RVR: Code(s): I48.0 - Paroxysmal atrial fibrillation Status: Acute Assessment and Plan: Cardiology consulted Back to sinus rhythm Currently on Lovenox therapeutic dose will switch to Eliquis. Subjective Date/time seen: 07/08/21 14:24 Interval history: Interval history: No Overnight events. Feeling better. Still has cough. Denies any chest pain or shortness of breath. He had back surgery in April. He has been home since then and has not work with therapy. He complains of some tingling and numbness in his upper extremities is been ongoing issue. 07/06/2021 no overnight events. Feeling stronger sitting in the chair. Denies any chest pain or shortness of breath. Remains on oxygen. Has a Boles catheter in place. 07/07/2021 no overnight events. Has some sniffles going on today. Any shortness of breath or chest pain. Minimal cough. Off oxygen now. Boles catheter has been removed. He has been accepted to rehab facility in [place] 07/08/2021 no overnight events. Denies any shortness of breath or chest pain. He does not like the thickened water. Cough is improving no fever chills. Review of Systems Review of Systems: All systems reviewed & are unremarkable except as noted in HPI and below (HPI) Exam Narrative: Patient is comfortable, NAD HEENT: eyes are clear and none icteric LUNGS: normal respirator
[2021-07-08] MEDS: ACETAMINOPHEN 325 MG TABLET 650 MG PO (15:04)
[2021-07-08] MEDS: LOSARTAN POTASSIUM 25 MG TABLET PO (15:04)
[2021-07-08] MEDS: hydroCHLOROthiazide 25 MG TABLET PO (15:04)
[2021-07-08 15:26] LABS: Glucose Point of Care 169 mg/dl (65-105)
[2021-07-08] MEDS: TOLNAFTATE 1% POWDER 45 GM BTL 1 APPLIC TOPICAL (17:26)
[2021-07-08] MEDS: metFORMIN HCL XR 500 MG TAB.SR.24H 1000 MG PO (17:26)
[2021-07-08 20:10] VITALS: PULSE 86; RESP 20; O2SAT 96
[2021-07-08] MEDS: APIXABAN 5 MG TABLET PO (21:27)
[2021-07-08 22:00] VITALS: BP 134/73; PULSE 80; RESP 18; TEMP 36.5; O2SAT 96
[2021-07-09] MEDS: AMPICILLIN SULB 3 GM/NS 100 ML 3 GM/100 ML VIAL IVPB ×4 (01:26→18:08)
[2021-07-09 06:00] VITALS: BP 135/77; PULSE 75; RESP 18; TEMP 36.5; O2SAT 96
[2021-07-09] MEDS: LEVOTHYROXINE SODIUM 112 MCG TABLET PO (06:00)
[2021-07-09 06:48] LABS: Basophils Absolute Auto 0.2 K/mm3 (0.0-0.1); Basophils Percent Auto 1.3 % (0.2-1.2); Eosinophils Absolute Auto 0.4 K/mm3 (0-0.3); Eosinophils Percent Auto 3.4 % (0-4.4); Hematocrit 32.9 % (42.0-52.0); Hemoglobin 11.1 g/dL (14.0-18.0); Lymphocytes Absolute Auto 1.18 K/mm3 (0.9-3.2); Lymphocytes Percent Auto 10.2 % (18.3-44.2); Mean Corpuscular HGB Conc 33.7 g/dl (32-36); Mean Corpuscular Volume 91.9 fl (80-100); Mean Platelet Volume 9.9 fl (7.4-10.4); Monocytes Absolute Auto 1.5 K/mm3 (0.1-0.6); Neutrophils Absolute Auto 7.7 K/mm3 (1.3-6.7); Neutrophils Percent Auto 66.1 % (45.5-73.1); Platelet Count Result 357 k/mm3 (150-375); Red Blood Count 3.58 M/mm3 (4.6-6.20); Red Cell Distribution Width 13.6 % (11.5-14.5); White Blood Count 11.6 K/mm3 (4.5-10.0)
[2021-07-09 07:05] LABS: Alanine Aminotransferase 41 U/L (4-50); Albumin Level 3.2 g/dL (3.5-5.1); Alkaline Phosphatase 118 U/L (38-126); Anion Gap 6 mmol/L (8-16); Aspartate Amino Transferase 45 U/L (17-59); Bilirubin,Total 0.5 mg/dL (0.2-1.3); Blood Urea Nitrogen 4 mg/dL (9-20); Calcium 8.5 mg/dL (8.4-10.2); Carbon Dioxide 26 mmol/L (22-30); Chloride 99 mmol/L (98-107); Estimated CRCL calculation 131 ml/min; Estimated Glomerular Filt Rate > 60; Glucose 146 mg/dL (65-110); Magnesium 1.8 mg/dL (1.6-2.3); Potassium 3.8 mmol/L (3.4-5.0); Sodium 131 mmol/L (137-145)
[2021-07-09 07:59] LABS: Atypical Lymphocytes Present; Band Neutrophils Percent 3 % (0-6); Eosinophils Absolute Manual 0.46 K/mm3 (0.02-0.5); Eosinophils Percent Manual 4 % (0-4); Lymphocytes Absolute Manual 1.62 K/mm3 (1.1-4.5); Metamyelocytes Percent 4 %; Monocytes Absolute Manual 0.81 K/mm3 (0.1-0.90); Monocytes Percent Manual 7 % (3-9); Myelocytes Percent 1 %; Neutrophils Absolute Manual 8.12 K/mm3 (1.3-6.7); Neutrophils Percent Manual 67 % (46-73); Total Cells Counted 100
[2021-07-09] MEDS: LOSARTAN POTASSIUM 25 MG TABLET PO (08:39)
[2021-07-09] MEDS: hydroCHLOROthiazide 25 MG TABLET PO (08:39)
[2021-07-09] MEDS: ATORVASTATIN 40 MG TABLET PO (08:39)
[2021-07-09] MEDS: metFORMIN HCL XR 500 MG TAB.SR.24H 1000 MG PO ×2 (08:40→17:32)
[2021-07-09] MEDS: ASPIRIN 81 MG ENTERIC TABLET PO (08:40)
[2021-07-09] MEDS: TOLNAFTATE 1% POWDER 45 GM BTL 1 APPLIC TOPICAL ×2 (08:40→17:33)
[2021-07-09] MEDS: APIXABAN 5 MG TABLET PO (08:40)
[2021-07-09] MEDS: LORATADINE 10 MG TABLET PO (08:40)
--- NOTE | 2021-07-09 09:41 | PM.PNCARD ---
Progress Note: A&P Assessment and Plan (1) Paroxysmal atrial flutter: Code(s): I48.92 - Unspecified atrial flutter Status: Acute Assessment and Plan: No recurrent atrial flutter on telemetry. Remote history of paroxysmal atrial fibrillation 2017. CHADS2 Vasc score 6 (age, HTN, DM, CVA by CT head). Systemic anticoagulation advised as clinically appropriate, however, patient at high risk catastrophic bleeding complication due to frequent falls. As such for now, aspirin 81 mg daily (2) Elevated troponin: Code(s): R77.8 - Other specified abnormalities of plasma proteins Status: Acute Assessment and Plan: Mild elevation with flat curve in setting of sepsis, hypoxic respiratory failure and relative hypotension and paroxysmal atrial flutter with rapid ventricular response. This is consistent with type 2 infarction not secondary to acute coronary syndrome and/or plaque rupture. 2D echocardiogram EF 60-65% normal pulmonary pressures no wall motion abnormalities or significant valvular pathology. (3) Severe sepsis with acute organ dysfunction: Code(s): A41.9 - Sepsis, unspecified organism; R65.20 - Severe sepsis without septic shock Status: Acute Assessment and Plan: Per primary service. Continue IV antibiotics. Blood cultures 07/03/2021 x2 negative to date. (4) Acute respiratory failure with hypoxia: Code(s): J96.01 - Acute respiratory failure with hypoxia Status: Acute Assessment and Plan: O2 supplementation. Close observation, bronchodilator therapy is appropriate IV antibiotics. (5) Pneumonia: Qualifiers: Laterality: unspecified laterality Lung location: unspecified part of lung Pneumonia type: due to unspecified organism Qualified Code(s): J18.9 - Pneumonia, unspecified organism Code(s): J18.9 - Pneumonia, unspecified organism Status: Acute Assessment and Plan: As above, IV antibiotics. Chest pain appears noncardiac worse with deep breathing consistent with pleuritic pain. Continue to monitor. Patient will notify us with progression or new issues. (6) DM type 2 (diabetes mellitus, type 2): Qualifiers: Diabetes mellitus complication status: without complication Diabetes mellitus subsea engineer insulin use: without subsea engineer use Qualified Code(s): E11.9 - Type 2 diabetes mellitus without complications Code(s): E11.9 - Type 2 diabetes mellitus without complications Status: Acute Assessment and Plan: Per primary service. (7) Frequent falls: Code(s): R29.6 - Repeated falls Status: Acute Assessment and Plan: PT OT evaluation. Subjective Date/time seen: 07/09/21 09:41 Interval history: Follow-up visit in this 75-year-old man with: Episode of atrial flutter with 2-1 conduction currently in sinus rhythm and not on any antiarrhythmic medication at this time. Telemetry demonstrates maintaining normal sinus rhythm. No cardiovascular complaints today he wants me to turn the temperature up in his room he says it is too cold in there. Denies prior cardiac history of any kind. Date of service 07/09/21: Feels good today. Not having any chest pain, palpitations, shortness of breath. Review of Systems Review of Systems: All systems reviewed & are unremarkable except as noted in HPI and below Constitutional: Constitutional: Reports as per HPI, Reports no additional constitutional complaints, Reports body ache(s), Reports chills, Reports fatigue, Reports fever(s), Reports frequent falls and Reports weakness Eyes: Eyes: Reports as per HPI and Reports no additional eye complaints ENT: Reports system reviewed and no additional complaints, except as documented, Reports as per HPI and Denies dizziness Cardiovascular: Cardiovascular: Reports as per HPI, Reports no additional cardiovascular complaints, Reports chest pain at rest (With coughing and deep breathing), Denies syncope and Reports dys
--- NOTE | 2021-07-09 11:47 | PCNFU ---
Nutrition Follow-Up Complete: Increased nutrient needs related to protein needs and skin healing as evidenced by unstageable wound to L heel Goal:Meet nutrient needs for wound healing Pt is progressing towards goal. Continue with current goal. Pt current nutrition is Regular diet/thickened liquids and dietary supplements Last recorded weight is 104.8 kg, down 1.9kg from wt reported on admit. Recommend re-weighing pt prior to discharge. Bowel Motility: No new BM reported Labs Reviewed: Hgb 11.1, Hct 32.9, Alb 3.2, Na 131, BUN 4, Cr 0.50, Glu 146 Meds Noted: Unaysn, Eliquis, Aspirin, Lipitor, Hydrochlorothiazide, Synthroid, Claritin, Cozaar, Metformin Skin: Left heel pressure ulcer - unstageable, bilateral groin rash Additional Notes: Current nutrition is a regular diet and thickened liquids per speech recommendations. Pt is receiving dietary supplement of Ensure Compact BID providing an additional 220kcal and 9g of protein to aid in wound healing. Ensure Compact is nectar thick consistency and appropriate for swallowing needs. Reported intake is 75% and 100% x3. Pt appears to tolerating current diet with adequate intake. Agree with diet orders at this time. Will continue to follow. Monitor intake, wt, labs, and skin. Follow up in 7 days.
[2021-07-09 14:00] VITALS: BP 131/79; PULSE 92; RESP 16; TEMP 37.2; O2SAT 95
[2021-07-09] MEDS: ACETAMINOPHEN 325 MG TABLET 650 MG PO (14:51)
[2021-07-09] MEDS: SALINE 0.65% NAS SOLN 44 ML BTL 1 SPRAY NASAL (15:18)
--- NOTE | 2021-07-09 18:17 | PM.IMPN ---
Progress Note: A&P Assessment and Plan (1) Severe sepsis with acute organ dysfunction: Code(s): A41.9 - Sepsis, unspecified organism; R65.20 - Severe sepsis without septic shock Status: Acute Assessment and Plan: 07/04/2021 interval history: patient with acute encephalopathy 2/2 sepsis as met criteria upon arrival and suspect patient has aspiration pneumonia patient is being treated with unasyn and vancomycin, will follow up on blood culture, patient is unable to provider any ROS or history, patient failed bedside swallow test and will have MDS tomorrow, patient with history of PAF upon arrival to floor went to A Fib RVR with rate of 150 most likely triggered by sepsis, was briefly placed diltiazem drip, and anticoagulated with levonox, rate is now controlled and off the drip, will consult dividing machine operator helper for further recommendation to follow, patient s/p spinal surgery spoke with his family, patient has lost feeling in lower extremities and unable to ambulate,patient will need PT and if he is unable to ambulate then he will need placement, 07/05/2021 acute encephalopathy secondary to sepsis due to aspiration pneumonia. 07/06/2021 acute encephalopathy continues to improve. Sepsis is resolved. Will stop IV fluid today on oral diet 07/07/2021 sepsis resolved encephalopathy improving. Continue IV antibiotics. May switch to Augmentin oral if continues to improve 07/08/2021 sepsis resolved encephalopathy improving CBC with leukocytosis persistent 12 K today was 11 K liver yesterday. Will continue Unasyn for now and recheck CBC in the morning. 07/09/2021 sepsis resolved encephalopathy resolved. Leukocytosis improving. On Unasyn was switched to Augmentin. (2) Pneumonia: Qualifiers: Laterality: unspecified laterality Lung location: unspecified part of lung Pneumonia type: due to unspecified organism Qualified Code(s): J18.9 - Pneumonia, unspecified organism Code(s): J18.9 - Pneumonia, unspecified organism Status: Acute Assessment and Plan: Suspected aspiration pneumonia Modified barium swallow test today suggest penetration to thin liquids. On thickened liquid as suggested and recommended by speech therapist Unasyn for antibiotic along with vancomycin Stopped his vancomycin 07/06/2021 Unasyn to continue and switch to Augmentin Leukocytosis improving Related to aspiration pneumonia MPS reviewed Repeat MBS planned in a.m. (3) Acute metabolic encephalopathy: Code(s): G93.41 - Metabolic encephalopathy Status: Acute Assessment and Plan: Likely due to sepsis and pneumonia (4) Acute respiratory failure with hypoxia: Code(s): J96.01 - Acute respiratory failure with hypoxia Status: Acute Assessment and Plan: Oxygen being tapered off (5) Paroxysmal atrial fibrillation with RVR: Code(s): I48.0 - Paroxysmal atrial fibrillation Status: Acute Assessment and Plan: Cardiology consulted Back to sinus rhythm Currently on Lovenox therapeutic dose will switch to Eliquis. However cardiology wants to only do aspirin has he had flipped back to sinus rhythm and remained sinus rhythm. Will stop his Eliquis (6) Lower extremity edema: Code(s): R60.0 - Localized edema Status: Acute Assessment and Plan: Has worsened She restarted his hydrochlorothiazide Will do venous duplex Recently done venous duplex was negative Will give a dose of Lasix today Subjective Date/time seen: 07/09/21 18:17 Interval history: Interval history: No Overnight events. Feeling better. Still has cough. Denies any chest pain or shortness of breath. He had back surgery in April. He has been home since then and has not work with therapy. He complains of some tingling and numbness in his upper extremities is been ongoing issue. 07/06/2021 no overnight events. Feeling stronger sitting in the chair. Denies any chest pain or shortness of breath. Remain
[2021-07-09] MEDS: FUROSEMIDE INJ 40 MG/4 ML VIAL IV PUSH (20:14)
[2021-07-09 20:15] VITALS: PULSE 92; RESP 16; O2SAT 95
[2021-07-09 21:48] VITALS: BP 108/80; PULSE 86; RESP 19; TEMP 37.1; O2SAT 94
[2021-07-10] MEDS: AMPICILLIN SULB 3 GM/NS 100 ML 3 GM/100 ML VIAL IVPB ×3 (01:44→12:13)
[2021-07-10] MEDS: LEVOTHYROXINE SODIUM 112 MCG TABLET PO (05:56)
[2021-07-10 06:21] LABS: Hematocrit 33.3 % (42.0-52.0); Hemoglobin 10.9 g/dL (14.0-18.0); Mean Corpuscular HGB Conc 32.7 g/dl (32-36); Mean Corpuscular Hemoglobin 31.1 pg (26-34); Mean Corpuscular Volume 94.9 fl (80-100); Mean Platelet Volume 9.7 fl (7.4-10.4); Platelet Count Result 359 k/mm3 (150-375); Red Blood Count 3.51 M/mm3 (4.6-6.20); Red Cell Distribution Width 14.1 % (11.5-14.5); White Blood Count 10.1 K/mm3 (4.5-10.0)
[2021-07-10 06:29] LABS: Alanine Aminotransferase 50 U/L (4-50); Albumin Level 3.3 g/dL (3.5-5.1); Alkaline Phosphatase 125 U/L (38-126); Anion Gap 7 mmol/L (8-16); Aspartate Amino Transferase 54 U/L (17-59); Bilirubin,Total 0.7 mg/dL (0.2-1.3); Blood Urea Nitrogen 7 mg/dL (9-20); Calcium 8.8 mg/dL (8.4-10.2); Carbon Dioxide 27 mmol/L (22-30); Chloride 98 mmol/L (98-107); Estimated CRCL calculation 96 ml/min; Estimated Glomerular Filt Rate > 60; Glucose 145 mg/dL (65-110); Magnesium 1.8 mg/dL (1.6-2.3); Potassium 4.1 mmol/L (3.4-5.0); Sodium 132 mmol/L (137-145)
[2021-07-10 07:27] LABS: Band Neutrophils Percent 3 % (0-6); Eosinophils Percent Manual 7 % (0-4); Metamyelocytes Percent 1 %; Monocytes Absolute Manual 1.11 K/mm3 (0.1-0.90); Monocytes Percent Manual 11 % (3-9); Neutrophils Absolute Manual 7.47 K/mm3 (1.3-6.7); Neutrophils Percent Manual 71 % (46-73); Total Cells Counted 100
[2021-07-10 07:28] LABS: Platelet Estimate Adequate (Adequate)
[2021-07-10] MEDS: ATORVASTATIN 40 MG TABLET PO (08:02)
[2021-07-10] MEDS: LOSARTAN POTASSIUM 25 MG TABLET PO (08:02)
[2021-07-10] MEDS: ASPIRIN 81 MG ENTERIC TABLET PO (08:02)
[2021-07-10] MEDS: hydroCHLOROthiazide 25 MG TABLET PO (08:02)
[2021-07-10] MEDS: metFORMIN HCL XR 500 MG TAB.SR.24H 1000 MG PO (08:02)
[2021-07-10] MEDS: LORATADINE 10 MG TABLET PO (08:03)
[2021-07-10] MEDS: TOLNAFTATE 1% POWDER 45 GM BTL 1 APPLIC TOPICAL (08:03)
--- NOTE | 2021-07-10 09:50 | PM.DS ---
DS: Admitting Diagnosis Discharge Date 07/10/2021 Admitting Diagnosis Weakness DS: Discharge Diagnosis Discharge Diagnosis (1) Severe sepsis with acute organ dysfunction: Code(s): A41.9 - Sepsis, unspecified organism; R65.20 - Severe sepsis without septic shock Status: Acute Assessment and Plan: The patient is a 75-year-old male who presented with acute encephalopathy 2/2 sepsis as met criteria upon arrival and suspect patient has aspiration pneumonia patient is being treated with unasyn and vancomycin. Patient also had AFib with RVR which was transient during admission which quickly converted back to sinus rhythm and remained sinus rhythm throughout the hospital stay. This was most likely to sepsis. He was initially placed on diltiazem drip briefly and also was started on anticoagulation with Lovenox. Cardiology was also consulted during the hospital stay. His blood culture remained negative. Further more during the hospital stay vancomycin was discontinued and was only continued on Unasyn. He finished 7 days course of IV antibiotics will be switched to Augmentin at discharge for 5 more days. This is for his aspiration pneumonia. (2) Pneumonia: Qualifiers: Laterality: unspecified laterality Lung location: unspecified part of lung Pneumonia type: due to unspecified organism Qualified Code(s): J18.9 - Pneumonia, unspecified organism Code(s): J18.9 - Pneumonia, unspecified organism Status: Acute Assessment and Plan: Suspected aspiration pneumonia Modified barium swallow test today suggest penetration to thin liquids. On thickened liquid as suggested and recommended by speech therapist Unasyn for antibiotic along with vancomycin Stopped his vancomycin 07/06/2021 Unasyn to continue and switch to Augmentin Leukocytosis improving Related to aspiration pneumonia Modified barium swallow reviewed and repeated on 07/10/2021 which still showed penetration of thin liquid and hence continued on thickened liquid at discharge. ST will need to continue to follow at the rehab facility (3) Acute metabolic encephalopathy: Code(s): G93.41 - Metabolic encephalopathy Status: Acute Assessment and Plan: Likely due to sepsis and pneumonia (4) Acute respiratory failure with hypoxia: Code(s): J96.01 - Acute respiratory failure with hypoxia Status: Acute Assessment and Plan: Oxygen tapered off (5) Paroxysmal atrial fibrillation with RVR: Code(s): I48.0 - Paroxysmal atrial fibrillation Status: Acute Assessment and Plan: Cardiology consulted Back to sinus rhythm Currently on Lovenox therapeutic dose will switch to Eliquis. However cardiology wants to only do aspirin has he had flipped back to sinus rhythm and remained sinus rhythm. Will stop his Eliquis (6) Lower extremity edema: Code(s): R60.0 - Localized edema Status: Acute Assessment and Plan: Has worsened She restarted his hydrochlorothiazide Venous duplex performed and was negative 07/10/2021 Recently done venous duplex was negative DS: Summary Hospital Course Hospital Course: See above Time Spent with Patient Time attestation: Total time spent providing and/or coordinating discharge services: 60 minutes Exam Narrative: Patient is comfortable, NAD HEENT: eyes are clear and none icteric LUNGS: normal respiratory efforts coarse breath sound bilaterally ABD: Soft nondistended nontender Lower extremities: Lower extremity edema 1 to 2+, no cyanosis or clubbing SKIN: nonjaundiced Neuro: grossly intact alert and conversant oriented to time place and person DS: Data Data Completed and Pending Completed studies during hospitalization: Exam Type: CA echo dop color flow w con Study Info Indications - afib, rvr Complete two-dimensional, color flow and Doppler transthoracic echocardiogram is performed with contrast to opacify the left ventricl
--- NOTE | 2021-07-10 11:25 | PCOTNOTE ---
All documentation completed by Gisella Yanes on 07/09/21 was completed as a certified occupational health nurse manager versus student [employer]. All coursework and certification testing was completed and passed prior to this date.
--- NOTE | 2021-07-10 11:31 | PCSTNOTE ---
Please refer to the Modified Barium Swallow Evaluation in the EMR.
[2021-07-10 14:00] VITALS: BP 118/57; PULSE 90; RESP 19; TEMP 36.6; O2SAT 99
--- NOTE | 2021-07-10 15:17 | PC.NURSE ---
Patient had hydrocodone-acetaminophen 5-325mg tablets locked up. 35 tablets counted and returned to patient with LES Maritnez.
== END 2021-07-10 15:45 | DRG 871 ==
LOC: ANHED 20:24 → ANH2MED 21:03 → ANHIMU 21:44 → ANH3MEDSUR 07-05 17:50
PROVIDERS: Admitting Provider Internal Medicine; Emergency Provider Emergency Medicine; PCP Internal Medicine; Visit Provider Internal Medicine
DX: A41.9 Sepsis, unspecified organism (principal); J18.9 Pneumonia, unspecified organism; J69.0 Pneumonitis due to inhalation of food and vomit; J96.01 Acute respiratory failure with hypoxia; G93.41 Metabolic encephalopathy; I21.A1 Myocardial infarction type 2; I48.92 Unspecified atrial flutter; E87.2 Acidosis; R65.20 Severe sepsis without septic shock; I48.0 Paroxysmal atrial fibrillation; Z20.822 Contact with and (suspected) exposure to COVID-19; R60.0 Localized edema; E11.42 Type 2 diabetes mellitus with diabetic polyneuropathy; E78.5 Hyperlipidemia, unspecified; E03.9 Hypothyroidism, unspecified; E66.9 Obesity, unspecified; Z68.30 Body mass index [BMI] 30.0-30.9, adult; E55.9 Vitamin D deficiency, unspecified; I45.10 Unspecified right bundle-branch block; I10 Essential (primary) hypertension; Z96.653 Presence of artificial knee joint, bilateral; Z90.49 Acquired absence of other specified parts of digestive tract; Z87.891 Personal history of nicotine dependence; Z79.82 Long term (current) use of aspirin; R29.6 Repeated falls
CPT/HCPCS: 36415; 36600; 70450; 71046; 71275; 74177; 80048; 80053; 80076; 80202; 81001; 82375; 82805; 82948; 83050; 83605; 83735; 84443; 84484; 85025; 85055; 85652; 86140; 87040; 87502; 92526; 92610; 92611; 93005; 93970; 96361; 96365; 96366; 96367; 96372; 96375; 97110; 97161; 97167; 97530; 97535; 99285; A9270; C8929; C9803; G0378; J0131; J0295; J0696; J1650; J1940; J3370; J3475; J7030; Q9957; Q9967; U0003; U0005